=== PATIENT | female | born 1950 | race Caucasian/White ===

== ENCOUNTER 2022-03-18 12:50 | Outpatient (RCR) | payer MEDICARE, BC, SELFPAY | END 2022-08-11 14:00 | disposition home or self-care (01) | PROVIDERS: Visit Provider Family Medicine | DX: M54.41 Lumbago with sciatica, right side (principal); Z51.89 Encounter for other specified aftercare | CPT/HCPCS: 97110; 97162 ==

== ENCOUNTER 2025-02-26 17:34 | Emergency (ER) | payer MEDICARE, OTHER, SELFPAY ==
[2025-02-26 17:37] VITALS: BP 146/72; PULSE 74; RESP 18; TEMP 37; O2SAT 93; BMI 35.4
--- NOTE | 2025-02-26 18:23 | ED.WEAKNESS ---
HPI - Weakness General Date Seen: 02/26/25 Chief complaint: Weakness Stated complaint: Both legs weak feel funny Time Seen by Provider: 02/26/25 17:43 Source: patient Mode of arrival: ambulatory Limitations: no limitations History of Present Illness HPI Narrative: Patient is a 74-year-old female presenting for bilateral lower extremity weakness. She states the weakness has been going on since Tuesday night. She felt the got worse today after she went on a long walk. She states usually she is able to get into the truck without issue but today she had difficulty getting into the truck. Also when she had to get out of her chair in the ED waiting room she had difficulty standing up which is abnormal for her. She feels like when she is walking she is unstable. Has never had symptoms like this before. Denies any recent viral illnesses, respiratory symptoms, GI symptoms, diarrhea, headache, vision changes, numbness, back pain, abdominal pain. Has not had any urinary incontinence, urinary retention, saddle anesthesia, fevers, chills. States that the entire leg the feels weak and can not state with certain spot that is worse. She states she is typically very active and does not need anything to help her walk. Was using her 's cane today. States she does not go outside much into the asif and has not noticed any tick bites or rashes. Related Data Home Medications ?Medication ?Instructions ?Recorded ?Confirmed albuterol sulfate 90 mcg/actuation 2 puff inhalation Q4H PRN wheezing 02/26/25 02/26/25 aerosol inhaler cholecalciferol (vitamin D3) 1,250 1,250 mcg PO 02/26/25 mcg (50,000 unit) capsule clopidogrel 75 mg tablet 75 mg PO DAILY 02/26/25 02/26/25 famotidine 40 mg tablet 40 mg PO DAILY 02/26/25 02/26/25 lisinopril 30 mg tablet 30 mg PO DAILY 02/26/25 02/26/25 metoprolol tartrate 25 mg tablet 25 mg PO BID 02/26/25 02/26/25 rosuvastatin 40 mg tablet 40 mg PO DAILY 02/26/25 02/26/25 Previous Rx's ?Medication ?Instructions ?Recorded nitrofurantoin 100 mg PO BID #10 caps 02/26/25 monohydrate/macrocrystals 100 mg capsule (Macrobid) prednisone 20 mg tablet 80 mg (4 x 20 mg) PO DAILY 2 weeks 02/26/25 #60 tabs Allergies Allergy/AdvReac Type Severity Reaction Status Date / Time No Known Drug Allergies Allergy Verified 02/26/25 17:42 Review of Systems Status of ROS: Reports: 10 or more systems reviewed and unremarkable except as noted in History and below PFSH PFS Social History Smoking Status: Never smoker Do you use any of these nicotine containing products: None Second hand tobacco smoke exposure: No How often do you have a drink containing alcohol: never How often do you have six or more drinks on one occasion: Never AUDIT-C Alcohol total score: 0 Non-prescribed substance use: denies use service: No Exam Narrative: Exam Narrative: Const: Well-nourished, Well-developed, in mild distress Eyes: PERRL, no conjunctival injection, and symmetrical lids HENT: Atraumatic external nose and ears. Moist mucous membranes. Neck: Symmetric, trachea midline, No thyromegaly. CVS: RRR, No murmurs or gallops. Peripheral pulses 2+ and equal in all extremities RESP: Unlabored respiratory effort. Clear to auscultation bilaterally. GI: Nontender/Nondistended, No rebound or guarding. MSK:Extremities w/o deformity, Normal Active ROM Skin: Warm, Dry. No rashes or lesions. Neuro: Normal Muscle tone, normal lower extremity reflexes, normal [id number],normal gait, 5/5 strain and head knee flexion-extension, ankle plantar and dorsal flexion, her may be some decreased hearing and hip extension and flexion, extremities bilaterally, normal rapid alternating movements. Psych: Awake, Alert, & Oriented x3. Appropriate mood and affect. Const: Vital Signs, click to edit/add: Vital Signs - 24 hr 02/26/25 17:37 Temperature 98.6 F Pulse Rate [Right Pulse Oximeter] 74 Respiratory Rate 18 Blood Pressure [Ri ght Upper Arm] 146/72 H Pulse Oximetry 93 Oxygen Delivery Me thod Room Air Course Vital Signs Vital signs: Initial Vital Signs Temperature 98.6 F 02/26/25 17:37 Temperature Source Temporal Artery Scan 02/26/25 17:37 Pulse Rate 74 02/26/25 17:37 Pulse Rhythm Regular 02/26/25 17:37 Pulse Strength 3+ Normal 02/26/25 17:37 Respiratory Rate 18 02/26/25 17:37 Blood Pressure 146/72 H 02/26/25 17:37 Blood Pressure Mean 96 02/26/25 17:37 Blood Pressure Position Sitting 02/26/25 17:37 Pulse Oximetry 93 02/26/25 17:37 Oxygen Delivery Method Room Air 02/26/25 17:37 Vital Signs Temperature 98.6 F 02/26/25 17:37 Pulse Rate 74 02/26/25 17:37 Respiratory Rate 18 02/26/25 17:37 Blood Pressure 146/72 H 02/26/25 17:37 Pulse Oximetry 93 02/26/25 17:37 Oxygen Delivery Method Room Air 02/26/25 17:37 Temperature 98.6 F 02/26/25 17:37 Pulse Rate 74 02/26/25 17:37 Respiratory Rate 18 02/26/25 17:37 Blood Pressure 146/72 H 02/26/25 17:37 Pulse Oximetry 93 02/26/25 17:37 Oxygen Delivery Method Room Air 02/26/25 17:37 Medications Administered Medications: Discontinued Medications Generic Name Dose Route Start Last Admin Trade Name Freq PRN Reason Stop Dose Admin Nitrofurantoin Macrocrystals 100 mg 02/26/25 20:54 02/26/25 21:13 Nitrofurantoin Monohyd Macro 100 Mg Capsule PO 02/26/25 20:55 100 mg ONCE ONE Administration Prednisone 80 mg 02/26/25 20:47 02/26/25 21:01 Prednisone 20 Mg Tablet PO 02/26/25 20:48 80 mg ONCE ONE Administration MDM - Weakness MDM Narrative Medical decision making narrative: Patient is a 74-year-old female presenting for bilateral lower extremity weakness. She has not had any recent respiratory infections or diarrhea and has normal reflexes so my concern for Guillain-Eighty Eight is low. She has normal sensation sinus concerned about transverse myelitis she is not having any back pain, saddle anesthesia or urinary retention and my concern for cauda equina is low. The weakness is in her lower extremities and is not descending paralysis so botulism is unlikely. With a bilateral weakness a stroke seems unlikely. This could be a myositis. Will order a broad workup including EKG, troponin, CMP, ESR, urinalysis, B12, CBC, CK, CRP, TSH. CBC, TSH, CRP, ESR, EKG, troponin, B12 all showed no acute concerning abnormalities. Considering symptoms have been going on for multiple days I do not believe repeat troponin is necessary. I CMP she does have elevated liver enzymes. AST and ALT are both elevated from most recent liver enzymes in the medical center from 2020. Her kidney function has gone up from 0.89 last year per epic records to 1.3 today. Her total CK was 4109. She has had no recent falls or inciting events out make the think this is rhabdomyolysis. Considering her proximal muscle weakness of the hips and lab results I do think she likely has polymyositis. She is having no rashes that would make me think she has dermatomyositis. She is showing no signs of respiratory failure, cardiac disease or other major disease. I was able to speak to the on-call provider for her PCP and they state they will work on getting her seen tomorrow. They are aware that she will be started on high-dose steroids. Urinalysis does show signs of a UTI. She is not having any UTI symptoms but since I am starting her on such high dose of steroids I will treat her for the UTI. Macrobid prescribed Lab Data Labs: Lab Results 02/26/25 02/26/25 Range/Units 18:01 18:40 WBC 9.26 (4.50-11.00) K/uL RBC 4.58 (4.00-5.20) m/uL Hgb 13.5 (12.0-16.0) gm/dL Hct 42.2 (33.0-51.0) % MCV 92 (80-100) fL MCH 30 (26-34) pg MCHC 32 (32-36) gm/dL RDW Coeff of Wili 12.9 (11.5-15.5) % Plt Count 245 (140-440) K/uL Neut % (Auto) 67.5 (42.0-72.0) % Lymph % (Auto) 22.9 (20-44) % [place] % (Auto) 7.0 (0.0-11.0) % Eos % (Auto) 2.2 (0.0-7.0) % Baso % (Auto) 0.2 (0.0-3.0) % Neut # (Auto) 6.25 (1.7-7.0) K/uL Lymph # (Auto) 2.12 (0.90-2.90) K/uL [place] # (Auto) 0.60 (0.00-0.90) K/UL Eos # (Auto) 0.20 (0.00-0.50) K/uL Baso # (Auto) 0.02 (0.00-0.30) K/uL Abs Immat Gran (auto) 0.02 (0.00-0.30) K/uL Imm/Tot Granulo (auto) 0.2 % ESR 9 (2-20) mm/hr Sodium 143 (135-149) mmol/L Potassium 3.8 (3.6-5.1) mmol/L Chloride 107 (96-114) mmol/L Carbon Dioxide 27 (20-32) mmol/L Anion Gap 9 (7-15) mEq/L BUN 33 H (7-30) mg/dL Creatinine 1.3 (0.5-1.5) mg/dL Estimated Creat Clear 30.45 Estimated GFR 43 ml/min Glucose 116 H (60-115) mg/dL Calcium 9.9 (8.4-10.6) mg/dL Magnesium 2.4 (1.5-2.6) mg/dL Total Bilirubin 0.5 (0.1-1.5) mg/dL AST 164 H (12-35) U/L ALT 130 H (4-35) U/L Alkaline Phosphatase 71 (40-150) U/L Total Creatine Kinase 4109 H (41-117) U/L Troponin I 0.04 (0.01-0.04) ng/mL C-Reactive Protein < 0.5 L (0.5-1.0) mg/dL Total Protein 6.9 (6.0-8.3) g/dL Albumin 4.2 (3.3-5.0) g/dL Vitamin B12 305 (243-894) pg/mL TSH 2.200 (0.270-4.200) uIU/mL Urine Color Yellow (Yellow) Urine Appearance Clear (Clear) Urine pH 5.5 (5.0-8.5) Ur Specific [place] >= 1.030 (1.000-1.030) Urine Protein 3+ A (Negative) Urine Glucose (UA) Negative (Negative) Urine Ketones Negative (Negative) Urine Blood 3+ A (Negative) Urine Nitrite Positive A (Negative) Urine Bilirubin Negative (Negative) Urine Urobilinogen 0.2 (0.2-1.0) Ur Leukocyte Esterase Trace A (Negative) Urine RBC 0-2 (0-2) Urine WBC 2-5 (0-5) Ur Squamous Epith Cells Moderate A (None-Few) Urine Bacteria Many A (None) ECG Data Attestation: I personally reviewed and interpreted this ECG as follows: Prior ECG tracings: not available for review Interpretation: Normal sinus rhythm with a rate of 74 beats per minute, normal intervals, normal axis, no ST or T-wave abnormalities Discharge Plan Discharge Clinical Impression: Polymyositis, Acute UTI Patient Disposition: Home, Self-Care Condition: Stable Instructions: Polymyositis (ED) Additional Instructions: I believe your hip weakness is due to polymyositis. This is an inflammatory condition of your muscles. Treatment is high dose steroids. I will give the 2 weeks of high-dose steroids but it is extremely important you do not stop these medications cold turkey. If you have not seen a primary care provider by next week you absolutely need to call them again and tell them you need to be seen immediately due to these high dose steroids. If you stop the medication cold turkey you can get seriously sick and end up in the ICU. I spoke to the on-call provider for your PCP. They state your provider is in the office tomorrow and should be able to get you seen. Call their office in the morning and inform them you were seen in the emergency department and was diagnosed with polymyositis and started on high dose steroids. The high-dose steroids can causes psychosis so if you have any neurological or changes to your mental baseline return for re-evaluation. Your urinalysis is showing signs though in acute urinary tract infection. Although your not having symptoms we are treating you with antibiotics due to the steroids your started on. Talk to your primary care provider about this also Prescriptions: New prednisone 20 mg tablet 80 mg PO DAILY 14 Days Qty: 60 0RF nitrofurantoin monohyd/m-cryst [Macrobid] 100 mg capsule 100 mg PO BID Qty: 10 0RF Rx Instructions: must administer with a meal/food No Action famotidine 40 mg tablet 40 mg PO DAILY clopidogrel 75 mg tablet 75 mg PO DAILY lisinopril 30 mg tablet 30 mg PO DAILY albuterol sulfate 90 mcg/actuation HFA aerosol inhaler 2 puff INHALATION Q4H PRN (Reason: wheezing) rosuvastatin 40 mg tablet 40 mg PO DAILY metoprolol tartrate 25 mg tablet 25 mg PO BID cholecalciferol (vitamin D3) 1,250 mcg (50,000 unit) capsule 1,250 mcg PO Follow Up/Referrals: Nimisha Peterson DO [Primary Care Provider, Family Practice] Stand Alone Forms: [employer],SL Info Instructions
[2025-02-26 18:48] LABS: Basophils Absolute Auto 0.02 K/uL (0.00-0.30); Basophils Percent Auto 0.2 % (0.0-3.0); Eosinophils Percent Auto 2.2 % (0.0-7.0); Hematocrit 42.2 % (33.0-51.0); Hemoglobin* 13.5 gm/dL (12.0-16.0); Immature Granulocytes Abs Auto 0.02 K/uL (0.00-0.30); Immature Granulocytes Pct Auto 0.2 %; Lymphocytes Absolute Auto 2.12 K/uL (0.90-2.90); Lymphocytes Percent Auto 22.9 % (20-44); Mean Corpuscular HGB Conc 32 gm/dL (32-36); Mean Corpuscular Hemoglobin 30 pg (26-34); Mean Corpuscular Volume 92 fL (80-100); Neutrophils Absolute Auto 6.25 K/uL (1.7-7.0); Neutrophils Percent Auto 67.5 % (42.0-72.0); Platelet Count* 245 K/uL (140-440); RDW Coefficient of Variation % 12.9 % (11.5-15.5); Red Blood Count 4.58 m/uL (4.00-5.20); White Blood Count* 9.26 K/uL (4.50-11.00)
[2025-02-26 18:51] LABS: Slide Review Reflex No
--- OUTSIDE RECORDS SUMMARY | 2025-02-26 18:52 | XMS_ITS | Clinical Summary ---
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 Active nitroglycerin (NITROSTAT) 0.4 mg sublingual tabletIndications :NSTEMI (non-ST elevated myocardial infarction) (HC) Place 1 Tablet (0.4 mg) under the tongue every 5 minutes if needed for Chest Pain. 30 Tablet 1 1 1:25 PM SAND CONDITIONER 07/16/20 21 Active cyclobenzaprine (FLEXERIL) 5 mg tabletIndications :Acute midline low back pain with right-sided sciatica Take 1 Tablet (5 mg) by mouth 3 times daily if needed for Muscle Spasm. 30 Tablet 1 06/06/20 23 Active clopidogreL (PLAVIX) 75 mg tabletIndications :History of non-ST elevation myocardial infarction (NSTEMI) Take 1 Tablet (75 mg) by mouth once daily. 90 Tablet 3 04/30/20 24 Active famotidine (PEPCID) 40 mg tabletIndications :Chronic GERD Take 1 Tablet (40 mg) by mouth once daily. 90 Tablet 3 04/30/20 24 Active lisinopriL (PRINIVIL; ZESTRIL) 30 mg tabletIndications :NSTEMI (non-ST elevated myocardial infarction) (HC) Take 1 Tablet (30 mg) by mouth once daily. 90 Tablet 3 04/30/20 24 Active metoprolol tartrate (LOPRESSOR) 25 mg tabletIndications :NSTEMI (non-ST elevated myocardial infarction) (HC) Take 1 Tablet (25 mg) by mouth two times daily. 180 Tablet 3 04/30/20 24 Active cholecalciferol (VITAMIN D3) 50,000 unit capsuleIndication s:Vitamin D deficiency Take 1 Capsule (50,000 units) by mouth once weekly. 12 Capsule 1 05/03/20 24 Active albuterol HFA (PRO-AIR; VENTOLIN; PROVENTIL) 90 mcg/actuation inhalerIndication s:Chronic obstructive pulmonary disease, unspecified COPD type (HC) INHALE 2 PUFFS BY MOUTH EVERY 4 HOURS NEEDED FOR SHORTNESS OF BREATH AND FOR WHEEZING 9 g 5 06/13/20 24 Active rosuvastatin 40 mg tabletIndications :Hyperlipidemia, unspecified hyperlipidemia type TAKE 1 TABLET(40 MG) BY MOUTH AT BEDTIME 90 Tablet 02/12/20 25 Active rosuvastatin (CRESTOR) 40 mg tabletIndications :Hyperlipidemia, unspecified hyperlipidemia type Take 1 Tablet (40 mg) by mouth at bedtime. 90 Tablet 11/13/19 25 2024 Discontinued(R eorder (E-cancel not sent)) rosuvastatin 40 mg tabletIndications :Hyperlipidemia, unspecified hyperlipidemia type Take 1 Tablet (40 mg) by mouth at bedtime. 30 Tablet 02/09/20 25 2024 Discontinued Active Problems Problem Noted Date Diagnosed Date Chronic obstructive pulmonary disease 09/16/2021 Aortic stenosis 07/16/2021 NSTEMI (non-ST elevated myocardial infarction) 1 09/14/2020 Overview (12/07/2023): ANW-- 1 LISA to mid circumflex (80% stenosis) DAPT January 2021-January 2024, then continue Plavix alone. Tobacco use 07/15/2021 Encounters Date Type Department Care Team Description 02/26/2025 Nurse Triage [facility] [address] [place] [address] Nimisha Peterson, DO Extremity Weakness 02/14/2025 Telephone [facility] [address] [facility] [address] [place] [address] Gerald Mena MD Other (Appointment 03/01/2025); Cardiology Appointment 02/12/2025 Telephone [facility] [address] [address] Gerald Mena MD Lab (Lab orders needed) 02/11/2025 Refill [facility] [address] [place] [address] Gerald Mena MD Refill Request (Rosuvastatin) 02/08/2025 Refill [facility] [address] [place] [address] Gerald Mena MD Refill Request (Rosuvastatin) 02/07/2025 Refill [facility] [address] [place] [address] Gerald Mena MD Refill Request (rosuvastatin 40 mg) from Last 3 Months Immunizations Immunization Administration Dates Next Due AMB Influenza, IIV3 (Age >=3 years)(Flu Clinic Only) 07/05/2011 COVID-19 VACCINE SPIKEVAX (M ODERNA 50MCG/0.5ML) 12YO+ PFS 07/05/2024,06/22/2023 COVID-19 vaccine (Jose-J&J) PF, MDV COVID-19 vaccine (Equals6Bio NTech 30mcg/0.3mL) 12YO+ BIVALENT PF, MDV 03/14/2023,09/21/2022 COVID-19 vaccine (Gold Lasso-Bio NTech 30mcg/0.3mL) 12YO+ JENNIFER-SUCROSE PF, MDV 01/11/2022 COVID-19 vaccine (BrickTrends NTech 30mcg/0.3mL) PF, MDV 07/21/2021 Hep B (Hepatitis B (Adult) R ecombinant Adjuvanted) 01/09/2024,12/09/2023 Influenza, IIV3 (Age 6-35 mos) 07/05/2011 Influenza, IIV3 (Age >=3 years) 06/15/2012,09/08,07/19/2007 Influenza, Inactivated AIIV4 (Age 65+ Years) Preserv Free 06/06/2023,06/01/2022,07/16/2021 Influenza, Inactivated IIV3 (Age 65+ Years) Preserv Free 07/05/2024 Pneumococcal Conj 20-valent (Prevnar 20) 022 RSV, Recombinant ADJ Reconst ituted (Arexvy 120MCG/0.5mL) 12/09/2023 Tdap 06/06/2022,06/15/2012 Zoster (Shingrix-RZV, recombinant) 08/09/2022, Family History Medical History Relation Name Comments Hodgkin's lymphoma Brother COPD Sister Asthma Son 1 Al Relation Name Status Comments Brother Father (Age 95) Mother (Age 88) Sister Son 1 Al Alive Son 2 Gilbert Alive Social History Tobacco Use Types Packs/Day Years Used Date Smoking Tobacco: Every Day Cigarettes 0.5 60.5 Started: 1966 Smokeless Tobacco: Former Tobacco Cessation:Ready to Q uit: Not Asked; Counseling Given: Not Answered Comments:on and off for years-- down to 5 cigarettes per day Alcohol Use Standard Drinks/Week Comments No 0 (1 standard drink = 0.6 oz pur e alcohol) PHQ-2 Answer Date Recorded PHQ-2 TOTAL SCORE 1 04/30/2024 Social Connections Answer Date Recorded Do you often feel lonely or isolated from those around you? 0 04/30/2024 Financial Resource Strain Answer Date R ecorded Difficulty of Paying Living Expenses 3 04/30/2024 Difficulty of Paying Living Expenses Not on file 04/30/2024 Food Insecurity Answer Date Recorded Do you worry your food will run out before you are able to buy more? 1 04/30/2024 Transportation Needs Answer Date Record ed Does lack of transportation keep you from medica l appointments? 1 04/30/2024 Does lack of transportation keep you from work, meetings or getting things that you need? 1 04/30/2024 Housing Stability Answer Date Recorded What is your housing situation today? 1 04/30/2024 Utilities Answer Date Recorded Do you have trouble paying f or utilities (for example, heat, electricity, water, phone)? 1 04/30/2024 Comments No Sex and Gender Information Value Date Recorded Sex Assigned at Not on file Legal Sex Female 5:25 AM SAND CONDITIONER Gender Identity Not on file Sexual Orientation Not on file Obstetrics History Last Filed Vital Signs Vital Sign Reading Time Taken Comments Blood Pressure 126/69 08/20/2024 12:59 PM SAND CONDITIONER Pulse 67 08/20/2024 12:59 PM SAND CONDITIONER Temperature 36.8 C (98.2 F) 03/09/2022 2:16 PM CDT Respiratory Rate 16 03/09/2022 2:16 PM CDT Oxygen Saturation 95% 08/20/2024 12:59 PM SAND CONDITIONER Inhaled Oxygen Concentration - - Weight 86.2 kg (190 lb) 08/20/2024 12:59 PM SAND CONDITIONER Height 162 cm (5' 3.78) 04/30/2024 10:54 AM CDT Body Mass Index 32.84 04/30/2024 10:54 AM CDT Plan of Treatment Upcoming Encounters Date Type Department Care Team (Late st Contact Info) Description 03/01/2025 1:30 PM CDT Office Visit [facility] [address] [place] [address] Gerald Mena MD [address] [place], [place] [id number] 03/19/2025 10:15 AM CDT Orders Only [facility] [address] [place] [address] Lab, [place] 03/19/2025 1:[address] [facility] [address] [place], [place] [id number] Health Maintenance Due Date Last Done Comments DEXA/DXA scan for age 65+ [address] (for lung CA) ag e 50-80 07/20/2023 07/20/2022 COVID-19 vaccine series ( season) 2025 07/05/2024, 06/22/2023, 03/14/2023, Additional history exists BMI (ht and wt on same day) for age 18+ 04/30/2025 04/30/2024, 03/14/2023, 07/13/2022, Additional history exists Medicare Wellness for age 65+ 05/01/2025, 03/14/2023, 08/05/2021 Depression screening for age 12+ 05/03/2025 05/03/2024, 05/01/2024, 04/30/2024, Additional history exists Tetanus booster 06/06/2032 06/06/2022, 06/05, 06/15/2012 Hepatitis C screening for ag e 18-79 Completed 07/21/2021 Pneumococcal series for age 50+ Completed Tdap Completed 06/06/2022, 06/15/2012 Zoster (shingles) series for age 50+ Completed 08/09/2022, 06/06/2022 RSV vaccine for adults or Completed 12/09/2023 Hepatitis B series for 19+ Completed 01/09/2024, Influenza Vaccine Completed 07/05/2024, , 06/01/2022, Additional history exists Procedures Procedure Name Priority Date/Time Associated Diagnosis Comments CT CHEST WO Routine 07/20/2022 11:11 AM SAND CONDITIONER Atelectasis of right lung ANTI HCV Routine 07/21/2021 9:56 AM SAND CONDITIONER Need for hepatitis C screening test from Last 3 Months or Most Recently Relevant to Health Maintenance Results * CT CHEST WO (07/20/2022 11:11 AM SAND CONDITIONER) Anatomical Region Laterality Modality CHEST, THORAX, HEART Computed To mography 07/20/2022 11:3 7 AM SAND CONDITIONER Narrative 07/20/2022 11:37 AM SAND CONDITIONER For Patients: As a result of the 21st Century Cures Act, medical imaging exams and procedure reports are released immediately into your electronic medical record. You may view this report before your referring provider. If you have questions, please contact your health care provider. Indication: Abnormal x-ray, lung opacities Technique: Noncontrast CT chest Please note that all CT scans at this facility use dose modulation, iterative reconstruction, and/or weight-based dosing when appropriate to reduce radiation dose to as low as reasonably achievable. Comparison: Chest x-ray 03/12/2022 Findings: There are a few scattered tiny pulmonary nodules bilaterally. The largest is located in the right upper lobe measuring 3 millimeters, series 3, image 18. No pneumothorax. No pleural effusion. No infiltrate. Subsegmental linear atelectasis/scar in the right lower lobe. 2 millimeter calcified granuloma within the right lower lobe. No mediastinal, hilar or axillary adenopathy. Vascular calcifications including calcifications of the coronary arteries. Benign low-density left adrenal adenoma measuring 1.5 cm. Lung volumes are similar. Mild emphysematous changes. Impression: Right lower lobe linear subsegmental atelectasis/scar. There are few scattered tiny nodules present bilaterally measuring up to 3 millimeters. Optional follow-up in 1 year. Mild COPD/emphysema. Incidental benign adenoma left adrenal gland. Please note that all CT scans at this facility use dose modulation, iterative reconstruction, and/or weight-based dosing when appropriate to reduce radiation dose to as low as reasonably achievable. Dictated by Pavel Wallace MD @ Jul 20 2022 11:37AM (Electronically Signed) Procedure Note Pavel Wallace MD - 07/20/2022 For Patients: As a result of the 21st Century Cures Act, medical imagingexams and procedure reports are released immediately into your electronicmedical record. You may view this report before your referring provider.If you have questions, please contact your health care provider. Indication: Abnormal x-ray, lung opacities Technique: Noncontrast CT chest Please note that all CT scans at this facility use dose modulation,iterative reconstruction, and/or weight-based dosing when appropriate toreduce radiation dose to as low as reasonably achievable. Comparison: Chest x-ray 03/12/2022 Findings: There are a few scattered tiny pulmonary nodules bilaterally. The largestis located in the right upper lobe measuring 3 millimeters, series 3,image 18. No pneumothorax. No pleural effusion. No infiltrate.Subsegmental linear atelectasis/scar in the right lower lobe. 2 millimetercalcified granuloma within the right lower lobe. No mediastinal, hilar oraxillary adenopathy. Vascular calcifications including calcifications ofthe coronary arteries. Benign low-density left adrenal adenoma measuring1.5 cm. Lung volumes are similar. Mild emphysematous changes. Impression: Right lower lobe linear subsegmental atelectasis/scar. There are few scattered tiny nodules present bilaterally measuring up to 3millimeters. Optional follow-up in 1 year. Mild COPD/emphysema. Incidental benign adenoma left adrenal gland. Please note that all CT scans at this facility use dose modulation,iterative reconstruction, and/or weight-based dosing when appropriate toreduce radiation dose to as low as reasonably achievable. Dictated by Pavel Wallace MD @ Jul 20 2022 11:37AM (Electronically Signed) Catrachito Warren DO CT Final Resu lt * ANTI HCV (07/21/2021 9:56 AM SAND CONDITIONER) HEPATITIS C ANTIBODY Non-React marce Non-React marce 07/21/2021 8:59 PM SAND CONDITIONER [facility] Comment:Antibodies to HCV no t detected; does not exclude the possibility of exposure to HCV. Blood BLOOD SPECIMEN / Unknown Venipuncture / Unknown 07/21/2021 9:56 AM SAND CONDITIONER 07/21/2021 9:56 AM SAND CONDITIONER Saloni [facility]LL[facility] SEND OUT[facility] Final Result [facility] [address] [place] [address], [place] from Last 3 Months or Most Recently Relevant to Health Maintenance Insurance MEDICARE PART A HB ONLY [employer] PB ONLY * Guarantor: RAMILA LUCIANO Account Type Relation to Patient Date of Phone Billing Address Personal/Family [address] [facility] [id number] Advance Directives * Full Code (Latest Code Status on File) Date Activated Date Inactivated Comments 07/15/2021 3:32 AM 07/16/2021 4:47 PM Question Answer Comments Code Status Discussion: Discussed Care Teams Drywall Finisher Relationship Specialty Start Date End Date Nimisha Peterson [place] [address] PCP - General Family Practice 06/01/22
[2025-02-26 19:08] LABS: Albumin* 4.2 g/dL (3.3-5.0); Chloride* 107 mmol/L (96-114)
[2025-02-26 19:09] LABS: Potassium* 3.8 mmol/L (3.6-5.1); Sodium* 143 mmol/L (135-149)
[2025-02-26 19:11] LABS: Alanine Aminotransferase* 130 U/L (4-35); Aspartate Amino Transferase* 164 U/L (12-35); Blood Urea Nitrogen* 33 mg/dL (7-30); Creatinine* 1.3 mg/dL (0.5-1.5); Est. Creatinine Clearance* 30.45; Estimated Glomerular Filt Rate 43 ml/min
[2025-02-26 19:12] LABS: Alkaline Phosphatase* 71 U/L (40-150); Anion Gap 9 mEq/L (7-15); Bilirubin Total* 0.5 mg/dL (0.1-1.5); Calcium* 9.9 mg/dL (8.4-10.6); Carbon Dioxide* 27 mmol/L (20-32); Glucose* 116 mg/dL (60-115); Magnesium* 2.4 mg/dL (1.5-2.6); Total Protein* 6.9 g/dL (6.0-8.3)
[2025-02-26 19:24] LABS: Troponin I* 0.04 ng/mL (0.01-0.04)
[2025-02-26 19:35] LABS: Erythrocyte SedimentationRate* 9 mm/hr (2-20)
[2025-02-26 19:51] LABS: C Reactive Protein* < 0.5 mg/dL (0.5-1.0)
[2025-02-26 20:02] LABS: Vitamin B12* 305 pg/mL (243-894)
[2025-02-26 20:22] LABS: Creatine Kinase* 4109 U/L (41-117)
[2025-02-26 20:33] LABS: Appearance Urine Clear (Clear); Bilirubin Urine Negative (Negative); Blood Urine 3+ (Negative); Color Urine Yellow (Yellow); Glucose Urine Negative (Negative); Ketones Urine Negative (Negative); Leukocyte Esterase Urine Trace (Negative); Nitrite Urine Positive (Negative); Protein Urine 3+ (Negative); Specific Gravity Urine >= 1.030 (1.000-1.030); Urobilinogen Urine 0.2 (0.2-1.0); pH Urine 5.5 (5.0-8.5)
[2025-02-26] MEDS: predniSONE 20 MG TABLET 80 MG PO (21:01)
[2025-02-26 21:08] LABS: RBC Urine 0-2 (0-2)
[2025-02-26 21:09] LABS: Bacteria Urine Many; Squamous Epithelial Cell Urine Moderate (None-Few)
[2025-02-26] MEDS: NITROFURANTOIN MONOHYD MACRO 100 MG CAPSULE PO (21:13)
== END 2025-02-26 21:16 | disposition home or self-care (01) ==
PROVIDERS: Emergency Provider Student in an Organized Health Care Education/Training Program; PCP Family Medicine
DX: M33.20 Polymyositis, organ involvement unspecified (principal); N39.0 Urinary tract infection, site not specified
CPT/HCPCS: 36415; 80053; 81001; 82550; 82607; 83735; 84443; 84484; 85025; 85651; 86140; 87086; 93005; 99284; A9270; J7512

== ENCOUNTER 2025-07-10 09:14 | Emergency (ER) | payer MEDICARE, OTHER, SELFPAY ==
--- OUTSIDE RECORDS SUMMARY | 2025-07-10 09:17 | XMS_ITS | Clinical Summary ---
Author Organization [facility] Address [address] [place] [id number] Care Team Providers Care Laboratory Apparatus Glass Blower Name Role Phone Nimisha Peterson DO Primary Care Provider Patricia Brown MD Unavailable [phone] Carla Matthews Unavailable Sandy Campuzano MD Unavailable [phone] Allergies Active Allergy Reactions Criticality Noted Date Comments Bee Venom Protein (Honey Bee) Edema 03/17/2022 Pyhfnqu-Vul-Xck Reductase Inhibitors Other - Describe In Comment Field 06/05/2025 biopsy proven myositis not clear etiology Medications nitroglycerin (NITROSTAT) 0.4 mg sublingual tabletIndicati ons:NSTEMI (non-ST elevated myocardial infarction) (HC) Place 1 Tablet (0.4 mg) under the tongue every 5 minutes if needed for Chest Pain. 30 Tablet 1 1 1:25 PM FOOD BEVERAGE ATTENDANT 021 Active clopidogreL (PLAVIX) 75 mg tabletIndicati ons:History of non-ST elevation myocardial infarction (NSTEMI) Take 1 Tablet (75 mg) by mouth once daily. 90 Tablet 3 025 Active albuterol HFA (PRO-AIR; VENTOLIN; PROVENTIL) 90 mcg/actuation inhalerIndicat ions:Chronic obstructive pulmonary disease, unspecified COPD type (HC) INHALE 2 PUFFS BY MOUTH EVERY 4 HOURS NEEDED FOR SHORTNESS OF BREATH AND FOR WHEEZING 6.7 g 3 025 Active cholecalcifero l (VITAMIN D3) 1,000 unit capsule Take 1,000 units by mouth once daily. Active acetaminophen (TYLENOL) 325 mg tabletIndicati ons:Polymyosit is (HC) Take 2 Tablets (650 mg) by mouth every 4 hours if needed for Pain. Max acetaminophen dose: 4000mg in 24 hrs. 120 Tablet 025 Active Additional Information Patient not taking.Reason: per patient she is not taking this, Reported on 07/03/2025 sennosides-doc usate (SENOKOT S) (8.6-50 mg) tabletIndicati ons:Polymyosit is (HC) Take 1 Tablet by mouth 2 times daily if needed for Constipation. 20 Tablet 025 Active Additional Information Patient not taking.Reported on 07/03/2025 azaTHIOprine (IMURAN) 50 mg tabletIndicati ons:Necrotizin g myopathy,Infla mmatory myopathy TAKE 1 TABLET BY MOUTH DAILY FOR 2 WEEKS THEN TAKE 1 TABLET BY MOUTH TWICE DAILY 145 Tablet 025 Active durable medical equipment (DME)Indicatio ns:Bilateral lower extremity edema 1 pair knee high compression stockings (16-20 mmHg) 1 Each 025 Active predniSONE (DELTASONE) 5 mg tabletIndicati ons:Necrotizin g myopathy,Infla mmatory myopathy Take 3 tablets daily (15mg) for 4 weeks and then 2.5 tablets (12.5mg) daily for 4 weeks and then 2 tablets daily (10mg) for 4 weeks and then 1.5 tablets daily for 4 weeks ( 7.5mg) and then 1 tablet daily (5mg) daily and continue 120 Tablet 3 025 Active folic acid 1 mg tabletIndicati ons:Macrocytic anemia,Folic acid deficiency Take 1 Tablet (1 mg) by mouth once daily. 90 Tablet 1 025 Active Additional Information Patient not taking.Reported on 06/07/2025 alirocumab (Praluent Pen) 150 mg/mL pnij Inject 150 mg subcutaneous every 2 weeks. 2 mL 5 025 Active Additional Information Patient not taking.Reported on 07/03/2025 furosemide (LASIX) 20 mg tabletIndicati ons:Bilateral lower extremity edema Take 2 Tablets (40 mg) by mouth two times daily. 60 Tablet 3 Active potassium chloride (K-TAB) 20 mEq extended-relea se tabletIndicati ons:Hypokalemi a Take 1 Tablet (20 mEq) by mouth once daily with a meal. 30 Tablet 2 Active cyanocobalamin (VITAMIN B12) as half tablet Take 1,000 mcg by mouth once daily. Active famotidine (PEPCID) 40 mg tabletIndicati ons:Chronic GERD TAKE 1 TABLET(40 MG) BY MOUTH DAILY 90 Tablet 2 Active metoprolol tartrate (LOPRESSOR) 25 mg tabletIndicati ons:NSTEMI (non-ST elevated myocardial infarction) (HC) TAKE 1 TABLET(25 MG) BY MOUTH TWICE DAILY 180 Tablet Active lisinopriL (PRINIVIL; ZESTRIL) 30 mg tabletIndicati ons:NSTEMI (non-ST elevated myocardial infarction) (HC) Take 1 Tablet (30 mg) by mouth once daily. 60 Tablet Active famotidine (PEPCID) 40 mg tabletIndicati ons:Chronic GERD Take 1 Tablet (40 mg) by mouth once daily. 90 Tablet 025 2024 Discontinued metoprolol tartrate (LOPRESSOR) 25 mg tabletIndicati ons:NSTEMI (non-ST elevated myocardial infarction) (HC) Take 1 Tablet (25 mg) by mouth two times daily. 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 Tobacco use 07/15/2021 Encounters Date Type Department Care Team Description 07/08/2025 3:15 PM FOOD BEVERAGE ATTENDANT Orders Only [facility] [address] [place] [address] Lab, [place] [facility] 07/08/2025 Travel 07/08/2025 Refill [facility] [address] [place] [address] Nicholas Nimisha Nayana, DO Refill Request (Lisinopril) 07/03/2025 9:40 AM CDT Office Visit [facility] [address] [place] [address] Sandy Campuzano MD Consult (Adenoma of left adrenal gland, Inflammatory myopathy//) 07/03/2025 Travel 06/27/2025 Refill [facility] [address] [place] [address] Nicholas Nimisha Nayana, DO Refill Request (Famotidine, Metoprolol Tartrate) 06/25/2025 Telephone [facility] [address] [place] [address] Chrisra Nimisha Nayana, DO Follow Up 06/21/2025 Telephone [facility] [address] [place] [address] Chrisra Nimisha Nayana, DO DME Supply (Oxygen ) 06/08/2025 Refill [facility] [address] [place] [address] Walterqra Nimisha Nayana, DO Refill Request (Lisinopril) 06/07/2025 9:40 AM CDT Orders Only [facility] [address] [place] [address] Lab 06/07/2025 Travel 06/07/2025 Telephone [facility] [address] [place] [address] Bob [facility] [address] [place] [address] Catrachito Warren DO Appointment Request (MIKAELA REFERRAL) 06/06/2025 Telephone [facility] [address] [place] [address] Carla Matthews MBBS Results 06/05/2025 1:30 PM CDT Office Visit [facility] [address] [place] [address] Carla Matthews MBBS Consult 06/05/2025 Orders Only [facility] [address] [place] [id number] Gerald Mena MD <No scans attached> 06/05/2025 Orders Only [facility] [address] [place] [id number] Gerald Mena MD <No scans attached> 06/05/2025 Travel 05/31/2025 Telephone [facility] [address] [place] [address] Nimisha Peterson, DO Results 05/30/2025 Telephone [facility] [address] [place] [phone] Gerald Mena MD Medication Management 05/29/2025 9:45 AM CDT Office Visit [facility] [address] [place] [address] Nimisha Peterson, DO Follow Up 05/29/2025 Telephone [facility] [address] [facility] [address] [place] [address] Patricia Brown MD 05/29/2025 Travel 05/28/2025 Telephone [facility] [address] [facility] [address] [place] [address] Patricia Brown MD Results 05/28/2025 Orders Only [facility] [address] [address] Patricia Brown MD <No scans attached> 05/27/2025 10:30 AM CDT Ancillary Procedure [facility] [address] [place] [address] 05/27/2025 Travel 05/24/2025 Telephone [facility] [address] [address] Patricia Brown MD Infusion Therapy 05/23/2025 10:30 AM CDT Office Visit [facility] [address] [address] Patricia Brown MD Follow Up (8 week follow up. ) 05/23/2025 Travel 05/23/2025 Telephone [facility] [address] [place] [address] Nimisha Peterson, Results 05/20/2025 10:35 AM CDT Office Visit [facility] [address] [place] [address] Nimisha Peterson, Hospital F/U (Polymyositis ) 05/20/2025 Travel 05/17/2025 Telephone [facility] [address] [place] [address] Nimisha Peterson, Appointment Request 05/16/2025 Refill [facility] [address] [address] Patricia Brown MD Refill Request (Azathioprine) 05/16/2025 Telephone [facility] [address] [address] Patricia Brown MD 05/09/2025 Lab Requisition [facility] [address] [place] [address] Hardy Crum MD 05/01/2025 Telephone [facility] [address] [place] [address] Nimisha Peterson, DO Error-please disregard 05/01/2025 Telephone [facility] [address] [place] [address] Sondra Rodriguez MD Results 04/30/2025 Lab Requisition [facility] [phone] Unknown, Doctor 04/19/2025 7:26 AM CDT Anesthesia Event [facility] [address] [place] [address] Zafar Eastman MD Overgaard, Shawn M, CRNA 04/19/2025 7:15 AM CDT - 04/19/2025 8:47 AM CDT Surgery [facility] [address] [place] [address] Sondra Rodriguez MD RIGHT THIGH MUSCLE BIOPSY 04/15/2025 11:13 PM CDT - 04/19/2025 3:40 PM CDT Hospital Encounter [facility] [address] [place] [address] [facility] Hospitalists [facility], MD Eric Zamorano Andrew Michael, MD Polymyositis (HC) (Primary Dx) Discharge Disposition: Half-Way Facility 04/15/2025 11:39 AM CDT - 04/15/2025 10:09 PM CDT Emergency [facility] [address] [place] [address] Zuri Ventura PA Johnson, Nicholas Charles, MD Myositis, unspecified myositis type, unspecified site (Primary Dx); Weakness of both lower extremities; Elevated LFTs; Elevated CK; YOVANY (acute kidney injury) Discharge Disposition: Short Term/PPS Hosp 04/15/2025 Travel 04/15/2025 Telephone [facility] [address] [facility] [place] [address] Nimisha Peterson Nayana, DO Questions (losing ability to walk) 04/09/2025 Orders Only [facility] Scanner 1 scan: (1-Ord) [facility], MR CERVICAL SPINE WITHOUT CONTRAST, 04/09/2025 04/09/2025 Orders Only [facility] Scanner 1 scan: (1-Ord) [facility], THORACIC SPINE WO CONTRAST , 04/09/2025 from Last 3 Months Immunizations Immunization Administration Dates Next Due AMB Influenza, IIV3 (Age >=3 years)(Flu Clinic Only) 07/05/2011 COVID-19 VACCINE SPIKEVAX (M ODERNA 50MCG/0.5ML) 12YO+ PFS 07/05/2024,06/22/2023 COVID-19 vaccine (Jose-J&J) PF, MDV COVID-19 vaccine (SinDelantal.MxBio NTech 30mcg/0.3mL) 12YO+ BIVALENT PF, MDV 03/14/2023,09/21/2022 COVID-19 vaccine (SinDelantal.MxBio NTech 30mcg/0.3mL) 12YO+ JENNIFER-SUCROSE PF, MDV 01/11/2022 COVID-19 vaccine (SinDelantal.MxBio NTech 30mcg/0.3mL) PF, MDV 07/21/2021 Hep B [...] Date Smoking Tobacco: Every Day Cigarettes 0.5 60.8 Started: 1967 Smokeless Tobacco: Former Tobacco Cessation:Ready to Q uit: No; Counseling Given: Yes Comments:on and off for years-- down to 10 cigarettes per day Alcohol Use Standard Drinks/Week Comments No 0 (1 standard drink = 0.6 oz pur e alcohol) PHQ-2 Answer Date Recorded PHQ-2 TOTAL SCORE 1 04/30/2024 Social Connections Answer Date Recorded Do you often feel lonely or isolated from those around you? 0 04/16/2025 Alcohol Use Answer Date Recorded How often do you have a drink containing alcohol ? 0 07/03/2025 How many drinks containing a lcohol do you have on a typical day when you are drinking? Not on file 07/03/2025 How often do you have five or more drinks on one occasion? Not on file 07/03/2025 Financial Resource Strain Answer Date R ecorded Difficulty of Paying Living Expenses 3 04/30/2024 Difficulty of Paying Living Expenses Not on file 04/30/2024 Food Insecurity Answer Date Recorded Do you worry your food will run out before you are able to buy more? 1 04/16/2025 Transportation Needs Answer Date Record ed Does lack of transportation keep you from medica l appointments? 1 04/16/2025 Does lack of transportation keep you from work, meetings or getting things that you need? 1 04/16/2025 Housing Stability Answer Date Recorded What is your housing situation today? 1 04/16/2025 Interpersonal Safety Answer Date Record ed Are you being hit, kicked, p ushed or yelled at (see row info)? No 04/16/2025 Interpersonal Safety Abuse 12 - 18 Not on file 04/16/2025 Interpersonal Safety Ambulatory Vulnerability No t on file 04/16/2025 Utilities Answer Date Recorded Do you have trouble paying f or utilities (for example, heat, electricity, water, phone)? 1 04/16/2025 Comments No Sex and Gender Information Value Date Recorded Sex Assigned at Not on file Legal Sex Female 5:25 AM FOOD BEVERAGE ATTENDANT Gender Identity Not on file Sexual Orientation Not on file Obstetrics History Last Filed Vital Signs Vital Sign Reading Time Taken Comments Blood Pressure 102/50 07/03/2025 9:40 AM CDT Pulse 73 07/03/2025 9:40 AM CDT Temperature 36.3 C (97.3 F) 04/19/2025 10:21 AM CDT Respiratory Rate 20 04/19/2025 10:21 AM CDT Oxygen Saturation 96% 07/03/2025 9:40 AM CDT Inhaled Oxygen Concentration - - Weight 83.5 kg (184 lb) 07/03/2025 9:40 AM CDT Height 162 cm (5' 3.78) 05/23/2025 10:28 AM CDT Body Mass Index 31.8 05/23/2025 10:28 AM CDT Plan of Treatment Upcoming Encounters Date Type Department Care Team (Late st Contact Info) Description 07/16/2025 11:00 AM FOOD BEVERAGE ATTENDANT Office Visit [facility] [address] [place] [address] Nimisha Peterson, DO [address] [place] [address] 07/17/2025 10:30 AM FOOD BEVERAGE ATTENDANT Office Visit [facility] [address] [place] [address] Carla Matthews MBBS [address] [facility] [address] [place] [address] 07/25/2025 2:30 PM FOOD BEVERAGE ATTENDANT Office Visit [facility] [address] [facility] [address] [place] [address] [place] [address] [place] [address] 01/01/2026 10:05 AM CDT Office Visit [facility] [address] [facility] [address] [place] [address] [place] [address] [place], [place] [id number] Health Maintenance Due Date Last Done Comments DEXA/DXA scan for age 65+ 2013 Medicare Wellness for age 65+ 05/01/2025, 03/14/2023, 08/05/2021 Depression screening for age 12+ 05/03/2025 05/03/2024, 05/01/2024, 04/30/2024, Additional history exists Influenza Vaccine (#1) 2025 , 06/06/2023, 06/01/2022, Additional history exists BMI (ht and wt on same day) for age 18+ 05/23/2026 05/23/2025, 03/26/2025, 03/05/2025, Additional history exists Low Dose CT (for lung CA) ag e 50-80 05/27/2026 05/27/2025, 07/20/2022 Tetanus booster 06/06/2032 06/06/2022, 06/05, 06/15/2012 Pneumococcal series for age 50+ Completed Zoster (shingles) series for age 50+ Completed 08/09/2022, 06/06/2022 RSV vaccine for adults or Completed 12/09/2023 Hepatitis B series for 19+ Completed 01/09/2024, Hepatitis C screening for ag e 18-79 Completed 06/05/2025, 05/09/2025, 04/16/2025, Additional history exists Procedures Procedure Name Priority Date/Time Associated Diagnosis Comments URINALYSIS MICROSCOPIC Routine 2:55 PM FOOD BEVERAGE ATTENDANT Proteinuria, unspecified type URINE ALBUMIN TO CREATININE RATIO, RANDOM Routine 07/08/2025 2:55 PM FOOD BEVERAGE ATTENDANT Proteinuria, unspecified type MAGNESIUM Routine 07/08/2025 2:55 PM FOOD BEVERAGE ATTENDANT Proteinuria, unspecified type RENAL FUNCTION PANEL Routine 07/08/2025 2:55 PM FOOD BEVERAGE ATTENDANT Proteinuria, unspecified type PROTEIN/CREAT RATIO,URINE Routine 07/08/2025 2:55 PM FOOD BEVERAGE ATTENDANT Proteinuria, unspecified type UA W/ SEDIMENT EXAM REFLEXED PER CRITERIA Routine 07/08/2025 2:55 PM FOOD BEVERAGE ATTENDANT Proteinuria, unspecified type POTASSIUM Routine 07/03/2025 10:18 AM CDT Adenoma of left adrenal gland ALDOSTERONE LC/MS BLOOD Routine 07/03/20 10:18 AM CDT Adenoma of left adrenal gland CREATININE CLEARANCE SERUM Routine 06/07/2025 8:00 AM CDT Proteinuria, unspecified type CREATININE CLEARANCE URINE Routine 06/07/2025 8:00 AM CDT Proteinuria, unspecified type CREATININE CLEARANCE URINE Routine 06/07/2025 8:00 AM CDT Proteinuria, unspecified type IMMUNOFIXATION URINE TIMED Routine 06/07/2025 8:00 AM CDT Proteinuria, unspecified type URINALYSIS MICROSCOPIC Routine 3:39 PM CDT Proteinuria, unspecified type URINALYSIS MACROSCOPIC - [facility] ONLY POC DIP (QUEST) Routine 06/05/2025 3:39 PM CDT Proteinuria, unspecified type IMMUNOFIXATION ELP, URINE Routine 06/05/2025 3:39 PM CDT Proteinuria, unspecified type URINE ALBUMIN TO CREATININE RATIO, RANDOM Routine 06/05/2025 3:39 PM CDT Proteinuria, unspecified type PROTEIN/CREAT RATIO,URINE Routine 06/05/2025 3:39 PM CDT Proteinuria, unspecified type ANTINUCLEAR ANTIBODY BY IFA Routine 06/05/2025 3:32 PM CDT Proteinuria, unspecified type RA QUANTITATIVE Routine 06/05/2025 3:32 PM CDT Proteinuria, unspecified type CYCLIC CITRULLINE PEPTIDE Routine 06/05/2025 3:32 PM CDT Proteinuria, unspecified type CBC WITH AUTO DIFFERENTIAL Routine 06/05/2025 3:32 PM CDT Proteinuria, unspecified type BILIRUBIN,TOTAL/DIRECT Routine 3:32 PM CDT Proteinuria, unspecified type CALCIUM IONIZED OUTPT DRAW ONLY Routine 06/05/2025 3:32 PM CDT Proteinuria, unspecified type MAGNESIUM Routine 06/05/2025 3:32 PM CDT Proteinuria, unspecified type PTH,INTACT Routine 06/05/2025 3:32 PM CDT Proteinuria, unspecified type ANTI HCV Routine 06/05/2025 3:32 PM CDT Proteinuria, unspecified type ANTI HIV 1/2 Routine 06/05/2025 3:32 PM CDT Proteinuria, unspecified type CK TOTAL Routine 06/05/2025 3:32 PM CDT Proteinuria, unspecified type COMP METABOLIC PANEL Routine 06/05/2025 3:32 PM CDT Proteinuria, unspecified type PHOSPHOLIPASE A2 RECEPTOR Routine 06/05/2025 3:32 PM CDT Proteinuria, unspecified type ANTIGLOMERULAR BASEMENT MEMBRANE ANTIBODIES Routine 06/05/2025 3:32 PM CDT Proteinuria, unspecified type CYCLIC CITRULLINE PEPTIDE Routine 06/05/2025 3:32 PM CDT Proteinuria, unspecified type IMMUNOFIXATION,SERUM Routine 06/05/2025 3:32 PM CDT Proteinuria, unspecified type CBC WITH AUTO DIFFERENTIAL Routine 06/05/2025 3:32 PM CDT Proteinuria, unspecified type ELP AND FREE LIGHT CHAINS W REFLEX, BLOOD Routine 06/05/2025 3:32 PM CDT Proteinuria, unspecified type C4 COMPLEMENT Routine 06/05/2025 3:32 PM CDT Proteinuria, unspecified type ANCA PANEL FOR VASCULITIS Routine 06/05/2025 3:32 PM CDT Proteinuria, unspecified type RENAL FUNCTION PANEL Routine 06/05/2025 3:32 PM CDT Proteinuria, unspecified type HEMOGLOBIN Routine 05/29/2025 10:24 AM CDT Anemia of unknown etiology BASIC METABOLIC PANEL Routine 05/29/2025 10:24 AM CDT YOVANY (acute kidney injury) FOLIC ACID Routine 05/29/2025 10:24 AM CDT Macrocytic anemia CT CHEST ABDOMEN PELVIS W Routine 05/27/2025 10:50 AM CDT Necrotizing myopathy Inflammatory myopathy Weakness of both lower extremities ALDOLASE Routine 05/23/2025 11:27 AM CDT Necrotizing myopathy Inflammatory myopathy THIOPURINE METHYLTRANSFERASE Routine 05/23/2025 11:27 AM CDT Medication monitoring encounter PERIPHERAL BLD MORPHOLOGY Routine 05/20/2025 11:57 AM CDT Anemia of unknown etiology CK TOTAL Add On 05/20/2025 11:57 AM CDT Necrotizing myopathy TSH WITH REFLEX Add On 05/20/2025 11:57 AM CDT Macrocytic anemia VITAMIN B12 Add On 05/20/2025 11:57 AM CDT Macrocytic anemia FOLIC ACID Add On 05/20/2025 11:57 AM CDT Macrocytic anemia RED CELL MORPHOLOGY STAT 05/20/2025 11:57 AM CDT Polymyositis (HC) Anemia of unknown etiology CBC WITH AUTO DIFFERENTIAL STAT 05/20/2025 11:57 AM CDT Polymyositis (HC) Anemia of unknown etiology COMP METABOLIC PANEL Routine 05/20/2025 11:57 AM CDT Polymyositis (HC) YOVANY (acute kidney injury) RETICULOCYTES STAT 05/20/2025 11:57 AM CDT Polymyositis (HC) Anemia of unknown etiology CBC WITH AUTO DIFFERENTIAL STAT 05/20/2025 11:57 AM CDT Polymyositis (HC) Anemia of unknown etiology ANTI HCV Routine 05/09/2025 4:30 PM CDT RAPID HIV SCREEN Routine 05/09/2025 4:30 PM CDT RED CELL MORPHOLOGY Routine 05/01/2025 7 :05 AM CDT Chronic kidney disease, stage 3 unspecified (HC) Chronic obstructive pulmonary disease, unspecified (HC) Polymyositis, organ involvement unspecified (HC) PLATELET ESTIMATE Routine 05/01/2025 7:0 5 AM CDT Chronic kidney disease, stage 3 unspecified (HC) Chronic obstructive pulmonary disease, unspecified (HC) Polymyositis, organ involvement unspecified (HC) MANUAL DIFFERENTIAL Routine 05/01/2025 7 :05 AM CDT Chronic kidney disease, stage 3 unspecified (HC) Chronic obstructive pulmonary disease, unspecified (HC) Polymyositis, organ involvement unspecified (HC) CBC WITH AUTO DIFFERENTIAL Routine 05/01/2025 7:05 AM CDT Chronic kidney disease, stage 3 unspecified (HC) Chronic obstructive pulmonary disease, unspecified (HC) Polymyositis, organ involvement unspecified (HC) COMP METABOLIC PANEL Routine 05/01/2025 7:05 AM CDT Chronic kidney disease, stage 3 unspecified (HC) Chronic obstructive pulmonary disease, unspecified (HC) Polymyositis, organ involvement unspecified (HC) C-REACTIVE PROTEIN Routine 05/01/2025 7: 05 AM CDT Chronic kidney disease, stage 3 unspecified (HC) Chronic obstructive pulmonary disease, unspecified (HC) Polymyositis, organ involvement unspecified (HC) SEDIMENTATION RATE Routine 05/01/2025 7: 05 AM CDT Chronic kidney disease, stage 3 unspecified (HC) Chronic obstructive pulmonary disease, unspecified (HC) Polymyositis, organ involvement unspecified (HC) CBC WITH AUTO DIFFERENTIAL Routine 05/01/2025 7:05 AM CDT Chronic kidney disease, stage 3 unspecified (HC) Chronic obstructive pulmonary disease, unspecified (HC) Polymyositis, organ involvement unspecified (HC) PATH TISSUE EXAM Today 04/19/2025 8:06 AM CDT SUPRAGLOTTIC-LMA Routine 04/19/2025 7:50 AM CDT BIOPSY MUSCLE Class D Urgent: Inpt requiring surgery 04/19/2025 7:09 AM CDT WEAKNESS CREATININE Today 04/18/2025 11:15 AM CDT MR SPINE CERVICAL WO STAT 04/17/2025 8:32 PM CDT MR FEMUR RIGHT WO Routine 04/17/2025 8:3 1 PM CDT QFT MITOGEN PERFORMABLE Early AM 04/17/20 6:50 AM CDT QFT TB2 PERFORMABLE Early AM 04/17/2025 6 :50 AM CDT QFT TB1 PERFORMABLE Early AM 04/17/2025 6 :50 AM CDT QUANTIFERON TB GOLD PLUS Early AM 04/17/2025 6:50 AM CDT QUANTIFERON TB GOLD PLUS Early AM 04/17/2025 6:50 AM CDT IMMUNOGLOBULINS,IGG/A/M Early AM 04/17/20 6:50 AM CDT ANGIOTENSIN CONVERTING ENZYME Early AM 04/17/2025 6:50 AM CDT PROTEIN ELP,SERUM Early AM 04/17/2025 6:5 0 AM CDT LD,TOTAL Early AM 04/17/2025 6:50 AM CDT ALDOLASE Early AM 04/17/2025 6:50 AM CDT CK TOTAL Early AM 04/17/2025 6:50 AM CDT XR SPINE CERVICAL 3 VIEWS STAT 04/16/2025 7:41 PM CDT TSH MIKAELA 04/16/2025 5:04 AM CDT ACUTE HEPATITIS PANEL MIKAELA 04/16/2025 5:04 AM CDT CK TOTAL Early AM 04/16/2025 5:04 AM CDT SEDIMENTATION RATE Early AM 04/16/2025 5: 04 AM CDT HEMOGLOBIN Early AM 04/16/2025 5:04 AM CDT AST (SGOT) Early AM 04/16/2025 5:04 AM CDT ALT (SGPT) Early AM 04/16/2025 5:04 AM CDT CREATININE Early AM 04/16/2025 5:04 AM CDT C-REACTIVE PROTEIN Today 04/15/2025 11:59 PM CDT ALDOLASE STAT 04/15/2025 3:18 PM CDT MR HEAD BRAIN WWO STAT 04/15/2025 2:2 8 PM CDT HEPATIC FUNCTION PANEL MIKAELA 12:15 PM CDT CBC WITH AUTO DIFFERENTIAL STAT 04/15/2025 12:15 PM CDT C-REACTIVE PROTEIN STAT 04/15/2025 12:15 PM CDT SEDIMENTATION RATE STAT 04/15/2025 12:15 PM CDT CK TOTAL STAT 04/15/2025 12:15 PM CDT BASIC METABOLIC PANEL STAT 04/15/2025 12:15 PM CDT CBC WITH AUTO DIFFERENTIAL STAT 04/15/2025 12:15 PM CDT SCAN-CARDIAC STRIP 04/15/2025 12:00 AM CDT SCAN-MRI INTERPRETATION 04/09/20 12:00 AM CDT SCAN-MRI INTERPRETATION 04/09/20 12:00 AM CDT from Last 3 Months Results * (ABNORMAL) URINALYSIS MICROSCOPIC (07/08/2025 2:55 PM FOOD BEVERAGE ATTENDANT) Only the most recent of2 resultswithin the time period is included. RBC 0-2 0-2, None Seen /HPF 07/09/2025 2:16 AM FOOD BEVERAGE ATTENDANT [facility] TRAL LABORATORY WBC 26-50(A) 0-2, 3-5, None Seen /HPF 07/09/2025 2:16 AM FOOD BEVERAGE ATTENDANT [facility] BACTERIA Many(A) None Seen, Rare, Few Bacteria/ HPF 07/09/2025 2:16 AM FOOD BEVERAGE ATTENDANT [facility] EPITHELIAL CELLS None Seen None Seen, Few Epi/HPF 07/09/2025 2:16 AM FOOD BEVERAGE ATTENDANT [facility] HYALINE CASTS 3-5 0-2, 3-5 /LPF 07/09/2025 2:16 AM FOOD BEVERAGE ATTENDANT [facility] Urine URINE SPECIMEN / Unknown Non-Blood / Unknown 07/08/2025 2:55 PM FOOD BEVERAGE ATTENDANT 07/08/2025 2:56 PM FOOD BEVERAGE ATTENDANT Carla SIDDIQUI URINE Final Result Performing Organization Address [facility] Co de Phone Number [facility] [address] [place] [address], [place] * (ABNORMAL) PROTEIN/CREAT RATIO,URINE (07/08/2025 2:55 PM FOOD BEVERAGE ATTENDANT) Only the most recent of2 resultswithin the time period is included. PROTEIN QUANT,RAND URINE 18(H) 1 - 14 mg/dL 07/09/2025 12:33 AM FOOD BEVERAGE ATTENDANT [facility] CREAT,RANDOM URINE 75.7 28.0 - 217.0 mg/dL 07/09/2025 12:33 AM FOOD BEVERAGE ATTENDANT [facility] PROT/CREAT RATIO,UR 0.2(H) <0.2 07/09/2025 12:33 AM FOOD BEVERAGE ATTENDANT [facility] Urine URINE SPECIMEN / Unknown Non-Blood / Unknown 07/08/2025 2:55 PM FOOD BEVERAGE ATTENDANT 07/08/2025 2:56 PM FOOD BEVERAGE ATTENDANT Carla VELÁZQUEZ URINE Final Result Performing Organization Address City/[facility] Co de Phone Number [facility] [address] [place] [address], [place] * (ABNORMAL) URINE ALBUMIN TO CREATININE RATIO, RANDOM (07/08/2025 2:55 PM FOOD BEVERAGE ATTENDANT) Only the most recent of2 resultswithin the time period is included. ALB RAND URINE 31.0 mg/L 07/09/2025 12:33 AM FOOD BEVERAGE ATTENDANT [facility] CREATININE,URIN E 0.76 g/L 07/09/2025 12:33 AM FOOD BEVERAGE ATTENDANT [facility] ALBUMIN TO CREATININE RATIO,RAND UR 40.8(H) <30.0 mg/g creat 07/09/2025 12:33 AM FOOD BEVERAGE ATTENDANT [facility] Urine URINE SPECIMEN / Unknown Non-Blood / Unknown 07/08/2025 2:55 PM FOOD BEVERAGE ATTENDANT 07/08/2025 2:56 PM FOOD BEVERAGE ATTENDANT [facility] LABORATORY - 07/09/2025 12:33 AM FOOD BEVERAGE ATTENDANT If Albumin to Creatinine Ratio is elevated, consider the following: Elevations seen with incipient nephropathy associated with diabetes mellitus or hypertension. Stress, exercise,hematuria, and urinary tract infection may also produce elevated results. If clinically indicated, confirm with 24 Hour Albumin to Creatinine Ratio. Carla VELÁZQUEZ URINE Final Result [facility] [address] [place] [address], [place] * (ABNORMAL) UA W/ SEDIMENT EXAM REFLEXED PER CRITERIA (07/08/2025 2:55 PM FOOD BEVERAGE ATTENDANT) COLOR Yellow Yellow Color 07/09/2025 2:16 AM FOOD BEVERAGE ATTENDANT [facility]- NTRAL LABORATORY CLARITY Clear Clear Clarity 07/09/2025 2:16 AM FOOD BEVERAGE ATTENDANT [facility] NTRAL LABORATORY SPECIFIC GRAVITY,URINE 1.010 1.010, 1.015, 1.020, 1.025 07/09/2025 2:16 AM FOOD BEVERAGE ATTENDANT [facility] NTRFL LABORATORY PH,URINE 5.5 6.0, 7.0, 8.0, 5.5, 6.5, 7.5, 8.5 07/09/2025 2:16 AM FOOD BEVERAGE ATTENDANT [facility] UROBILINOGEN, QUALITATIVE Normal Normal EU/dl 07/09/2025 2:16 AM FOOD BEVERAGE ATTENDANT [facility] PROTEIN, URINE Trace(A) Negative mg/dL 07/09/2025 2:16 AM FOOD BEVERAGE ATTENDANT [facility] GLUCOSE, URINE Negative Negative mg/dL 07/09/2025 2:16 AM FOOD BEVERAGE ATTENDANT [facility] NTRFL LABORATORY KETONES,URINE Negative Negative mg/dL 07/09/2025 2:16 AM FOOD BEVERAGE ATTENDANT [facility] BILIRUBIN,URI NE Negative Negative 07/09/2025 2:16 AM FOOD BEVERAGE ATTENDANT [facility] OCCULT BLOOD,URINE Negative Negative 07/09/2025 2:16 AM FOOD BEVERAGE ATTENDANT [facility] NTRFL LABORATORY NITRITE Negative Negative 07/09/2025 2:16 AM FOOD BEVERAGE ATTENDANT [facility] LEUKOCYTE ESTERASE Moderate(A) Negative 07/09/2025 2:16 AM FOOD BEVERAGE ATTENDANT [facility] Urine URINE SPECIMEN / Unknown Non-Blood / Unknown 07/08/2025 2:55 PM FOOD BEVERAGE ATTENDANT 07/08/2025 2:56 PM FOOD BEVERAGE ATTENDANT Carla VELÁZQUEZ URINE Final Result [facility] [address] [place] [address], [place] * (ABNORMAL) MAGNESIUM (07/08/2025 2:55 PM FOOD BEVERAGE ATTENDANT) Only the most recent of2 resultswithin the time period is included. MAGNESIUM 2.8(H) 1.5 - 2.5 mg/dL 07/09/2025 4:46 AM FOOD BEVERAGE ATTENDANT [facility] Blood BLOOD SPECIMEN / Unknown [facility] / Unknown 07/08/2025 2:55 PM FOOD BEVERAGE ATTENDANT 07/08/2025 2:56 PM FOOD BEVERAGE ATTENDANT Carla VELÁZQUEZ CHEMISTRY Final Result [facility] [address] [place] [address], * (ABNORMAL) RENAL FUNCTION PANEL (07/08/2025 2:55 PM FOOD BEVERAGE ATTENDANT) Only the most recent of2 resultswithin the time period is included. SODIUM 144 135 - 146 mmol/L 07/09/2025 4:46 AM FOOD BEVERAGE ATTENDANT [facility] POTASSIUM 5.7(H) 3.5 - 5.3 mmol/L 07/09/2025 4:46 AM FOOD BEVERAGE ATTENDANT [facility] CHLORIDE 103 98 - 110 mmol/L 07/09/2025 4:46 AM FOOD BEVERAGE ATTENDANT [facility] CARBON DIOXIDE 27 20 - 32 mmol/L 07/09/2025 4:46 AM FOOD BEVERAGE ATTENDANT [facility] GLUCOSE 136(H) 65 - 99 mg/dL 07/09/2025 4:46 AM FOOD BEVERAGE ATTENDANT [facility] Comment: Fasting reference interval For someone without known diabetes, a glucose value >125 mg/dL indicates that they may have diabetes and this should be confirmed with a follow-up test. CALCIUM 9.6 8.6 - 10.4 mg/dL 07/09/2025 4:46 AM FOOD BEVERAGE ATTENDANT [facility] UREA NITROGEN (BUN) 73(H) 7 - 25 mg/dL 07/09/2025 4:46 AM FOOD BEVERAGE ATTENDANT [facility] CREATININE 2.27(H) 0.60 - 1.00 mg/dL 07/09/2025 4:46 AM FOOD BEVERAGE ATTENDANT [facility] BUN/CREATININE RATIO 32(H) 6 - 22 (calc) 07/09/2025 4:46 AM FOOD BEVERAGE ATTENDANT [facility] EGFR 22(L) > OR = 60 mL/min/1.7 3m2 07/09/2025 4:46 AM FOOD BEVERAGE ATTENDANT [facility] PHOSPHATE ( PHOSPHORUS) 6.0(H) 2.1 - 4.3 mg/dL 07/09/2025 4:46 AM FOOD BEVERAGE ATTENDANT [facility] ALBUMIN 4.2 3.6 - 5.1 g/dL 07/09/2025 4:46 AM FOOD BEVERAGE ATTENDANT [facility] Blood BLOOD SPECIMEN / Unknown [facility] / Unknown 07/08/2025 2:55 PM FOOD BEVERAGE ATTENDANT 07/08/2025 2:56 PM FOOD BEVERAGE ATTENDANT us Ahmed Zeen Alabedeen Alrifai MBBS CHEMISTRY Final Result Performing Organization Address [facility]/ZIP Co de Phone Number [facility] [address] [phone], * ALDOSTERONE LC/MS BLOOD (07/03/2025 10:18 AM CDT) ALDOSTERONE, LC/MS/MS 4 ng/dL 07/09/2025 2:04 PM FOOD BEVERAGE ATTENDANT [facility] Comment: Adult Reference Ranges for Aldosterone: Upright 8:00-10:00 am < or = 28 ng/dL Upright 4:00-6:00 pm < or = 21 ng/dL Supine 8:00-10:00 am 3-16 ng/dL This test was developed and its analytical performance characteristics have been determined by [employer]. It has not been cleared or approved by the FDA. This assay has been validated pursuant to the CLIA regulations and is used for clinical purposes. Blood BLOOD SPECIMEN / Unknown [facility] / Unknown 07/03/2025 10:18 AM CDT 07/03/2025 10:22 AM CDT Narrative [facility] - 07/09/2025 2:04 PM FOOD BEVERAGE ATTENDANT FASTING:UNKNOWN FASTING: UNKNOWN Sandy Campuzano MD SEND OUTS Final Result Performing Organization Address [facility] Co de Phone Number [facility] [address] [phone], * POTASSIUM (07/03/2025 10:18 AM CDT) POTASSIUM 4.8 3.5 - 5.3 mmol/L 07/04/2025 3:58 AM CDT [facility] Blood BLOOD SPECIMEN / Unknown [facility] / Unknown 07/03/2025 10:18 AM CDT 07/03/2025 10:22 AM CDT Narrative [facility] - 07/04/2025 3:58 AM CDT FASTING:UNKNOWN FASTING: UNKNOWN us Sandy Campuzano MD CHEMISTRY Final Result [facility] [place] [place] [address], * (ABNORMAL) IMMUNOFIXATION URINE TIMED (06/07/2025 8:00 AM CDT) COLLECTION HRS 24 hr 06/11/2025 4:01 PM CDT [facility] IFIX INTERP, URINE Immunofixation on urine shows no monoclonal protein detected and no free light chains detected. Interpreted and electronically signed by: Dolores Mccormack MD 06/11/2025 4:01 PM CDT [facility] TOTAL VOLUME 1,250 mL 06/11/2025 4:01 PM CDT [facility] PROTEIN,RAW URINE 13 mg/dL 06/11/2025 4:01 PM CDT [facility] PROTEIN,TIMED URINE 163(H) <150 mg/24hr 06/11/2025 4:01 PM CDT [facility] Urine URINE SPECIMEN / Unknown Non-Blood / Unknown 06/07/2025 8:00 AM CDT 06/07/2025 9:42 AM CDT Carla SIDDIQUI URINE Final Result [facility] [address] [place] [phone], * (ABNORMAL) CREATININE CLEARANCE SERUM (06/07/2025 8:00 AM CDT) eGFR 40(L) >90 mL/min/1.7 3m2 06/07/2025 2:38 PM CDT [facility] Comment:As of 2021, eG FR is calculated by the CKD-EPI creatinine equation without race adjustment. eGFR can be influenced by muscle mass, exercise, and diet. The reported eGFR is an estimation only and is only applicable if the renal function is stable. CREATININE 1.37(H) 0.50 - 0.90 mg/dL 06/07/2025 2:38 PM CDT [facility] Blood BLOOD SPECIMEN / Unknown Non-Lab Venipuncture / Unknown 06/07/2025 8:00 AM CDT 06/07/2025 9:42 AM CDT us Carla VELÁZQUEZ CHEMISTRY Final Result [facility] [address] [place] [address], * (ABNORMAL) CREATININE CLEARANCE URINE (06/07/2025 8:00 AM CDT) TOTAL VOLUME 1,250 mL 06/07/2025 7:33 PM CDT [facility] COLLECTION HRS 24 hr 06/07/2025 7:33 PM CDT [facility] WEIGHT,POUNDS 191.0 lb 06/07/2025 7:33 PM CDT [facility] HEIGHT,INCHES 5.0 in 06/07/2025 7:33 PM CDT [facility] SURFACE AREA 0.30 06/07/2025 7:33 PM CDT [facility] CREATININE RAW URINE 72 mg/dL 06/07/2025 7:33 PM CDT [facility] UNCORRECTED CREAT CLR 46 mL/min 06/07/2025 7:33 PM CDT [facility] CREATININE CLEARANCE 261(H) 66 - 165 ml/min/1.7 3m2 06/07/2025 7:33 PM CDT [facility] Urine URINE SPECIMEN / Unknown Non-Blood / Unknown 06/07/2025 8:00 AM CDT 06/07/2025 9:42 AM CDT us Carla VELÁZQUEZ URINE Final Result [facility] [address] [place] [address], [place] * (ABNORMAL) POCT Urinalysis Dipstick Only [[id number]] (06/05/2025 3:39 PM CDT) COLOR Yellow Yellow Color 06/05/2025 3:45 PM CDT [facility] CLARITY Slightly Cloudy(A) Clear Clarity 06/05/2025 3:45 PM CDT [facility] SPECIFIC GRAVITY,URINE 1.015 1.010, 1.015, 1.020, 1.025 06/05/2025 3:45 PM CDT [facility] PH,URINE 5.5 6.0, 7.0, 8.0, 5.5, 6.5, 7.5, 8.5 06/05/2025 3:45 PM CDT [facility] UROBILINOGEN, QUALITATIVE Normal Normal EU/dl 06/05/2025 3:45 PM CDT [facility] PROTEIN, URINE Negative Negative mg/dL 06/05/2025 3:45 PM CDT [facility] GLUCOSE, URINE Negative Negative mg/dL 06/05/2025 3:45 PM CDT [facility] KETONES,URINE Negative Negative mg/dL 06/05/2025 3:45 PM CDT [facility] BILIRUBIN,URI NE Negative Negative 06/05/2025 3:45 PM CDT [facility] OCCULT BLOOD,URINE Negative Negative 06/05/2025 3:45 PM CDT [facility] NITRITE Negative Negative 06/05/2025 3:45 PM CDT [facility] LEUKOCYTE ESTERASE Negative Negative 06/05/2025 3:45 PM CDT [facility] Urine URINE SPECIMEN / Unknown Non-Blood / Unknown 06/05/2025 3:39 PM CDT 06/05/2025 3:39 PM CDT us Carla VELÁZQUEZ URINE Final Result [facility] [address] [place] [address], [place] * IMMUNOFIXATION ELP, URINE (06/05/2025 3:39 PM CDT) Pathologist [facility] IFIX INTERP,URINE Immunofixation on urine shows no monoclonal protein detected and no free light chains detected. Interpreted and electronically signed by: Bettye Wooten MD 06/10/2025 4:53 PM CDT [facility]FL LABORATORY PROTEIN QUANT,RAND URINE 8 1 - 14 mg/dL 06/10/2025 4:53 PM CDT [facility]- [facility] LABORAT[facility] Urine URINE SPECIMEN / Unknown Non-Blood / Unknown 06/05/2025 3:39 PM CDT 06/05/2025 3:39 PM CDT Carla VELÁZQUEZ URINE Final Result [facility] LAB[facility] [address] [place] [address], [place] * PHOSPHOLIPASE A2 RECEPTOR (06/05/2025 3:32 PM CDT) Pathologist [facility] PHOSPHOLIPASE A2 RECEPTOR (PLA2R) AB, JOSE <4 RU/mL 06/11/2025 6:01 PM CDT [facility] Comment: Reference Range: <14: NEGATIVE 14-19: BORDERLINE >19: POSITIVE Blood BLOOD SPECIMEN / Unknown Non-Lab Venipuncture / Unknown 06/05/2025 3:32 PM CDT 06/05/2025 3:32 PM CDT Carla VELÁZQUEZ LABORATORY Final Result [facility] [address] [address], [place] [phone] * (ABNORMAL) ELP AND FREE LIGHT CHAINS W REFLEX, BLOOD (06/05/2025 3:32 PM CDT) Pathologist [facility] ELP,ALBUMIN 3.97 3.31 - 5.31 g/dL 06/10/2025 4:36 PM CDT [facility] ELP,ALPHA 1 0.40 0.19 - 0.42 g/dL 06/10/2025 4:36 PM CDT [facility] ELP,ALPHA 2 1.09(H) 0.44 - 1.03 g/dL 06/10/2025 4:36 PM CDT [facility] ELP,GAMMA 0.47(L) 0.59 - 1.46 g/dL 06/10/2025 4:36 PM CDT [facility] ELP,BETA 0.76 0.52 - 1.05 g/dL 06/10/2025 4:36 PM CDT [facility] KAPPA FREE LIGHT CHAIN, S 1.81 0.33 - 1.94 mg/dL 06/10/2025 4:36 PM CDT [facility] LAMBDA FREE LIGHT CHAIN, S 1.30 0.57 - 2.63 mg/dL 06/10/2025 4:36 PM CDT [facility] KAPPA/LAMBDA FLC RATIO 1.39 0.26 - 1.65 06/10/2025 4:36 PM CDT [facility] ELP INTERP,SERUM 1. Mild hypogammaglobulin emia, non-specific pattern. No monoclonal protein detected. 2. Increased Alpha-globulins, probably reactive. Interpreted and electronically signed by: Bettye Wooten MD 06/10/2025 4:36 PM CDT [facility] PROTEIN,TOTAL 6.7 6.0 - 8.0 g/dL 06/10/2025 4:36 PM CDT [facility] Blood BLOOD SPECIMEN / Unknown Non-Lab Venipuncture / Unknown 06/05/2025 3:32 PM CDT 06/05/2025 3:32 PM CDT Carla VELÁZQUEZ CHEMISTRY Final Result [facility] LAB[facility] [address] [address], * ANTINUCLEAR ANTIBODY BY IFA (06/05/2025 3:32 PM CDT) PAVITHRA SCREEN, IFA NEGATIVE NEGATIVE 5:51 PM CDT [facility] Comment: PAVITHRA IFA is a first line screen for detecting the presence of up to approximately 150 autoantibodies in various autoimmune diseases. A negative PAVITHRA IFA result suggests an PAVITHRA-associated autoimmune disease is not present at this time, but is not definitive. If there is high clinical suspicion for Sjogren's syndrome, testing for anti-SS-A/Ro antibody should be considered. Anti-Dona-1 antibody should be considered for clinically suspected inflammatory myopathies. AC-0: Negative International Consensus on PAVITHRA Patterns (https://doi.org/10.1515/ewnr-2390-9419) For additional information, please refer to http://education.DocumentCloud/faq/QID435 (This link is being provided for informational/ educational purposes only.) Blood BLOOD SPECIMEN / Unknown Non-Lab Venipuncture / Unknown 06/05/2025 3:32 PM CDT 06/05/2025 3:32 PM CDT Carla VELÁZQUEZ CHEMISTRY Final Result [facility] [address] [address], [place] [phone] * ANTIGLOMERULAR BASEMENT MEMBRANE ANTIBODIES (06/05/2025 3:32 PM CDT) GLOMERULAR BASEMENT MEMBRANE ANTIBODY (IGG) <1.0 AI 06/07/2025 1:04 PM CDT [facility] Comment: Value Interpretation ----- <1.0 No Antibody Detected > or = 1.0 Antibody Detected Blood BLOOD SPECIMEN / Unknown Non-Lab Venipuncture / Unknown 06/05/2025 3:32 PM CDT 06/05/2025 3:32 PM CDT Carla VELÁZQUEZ SEND OUTS Final Result [facility] [address] [place] [address], [place] [phone] * (ABNORMAL) CBC WITH AUTO DIFFERENTIAL (06/05/2025 3:32 PM CDT) Only the most recent of4 resultswithin the time period is included. WHITE BLOOD CELL COUNT 8.8 3.8 - 10.8 Thousand/ uL 06/06/2025 7:45 AM CDT [facility] RED BLOOD CELL COUNT 4.05 3.80 - 5.10 Million/u L 06/06/2025 7:45 AM CDT [facility] HEMOGLOBIN 12.3 11.7 - 15.5 g/dL 06/06/2025 7:45 AM CDT [facility] HEMATOCRIT 38.7 35.0 - 45.0 % 06/06/2025 7:45 AM CDT [facility] MCV 95.6 80.0 - 100.0 fL 06/06/2025 7:45 AM CDT [facility] MCH 30.4 27.0 - 33.0 pg 06/06/2025 7:45 AM CDT [facility] MCHC 31.8(L) 32.0 - 36.0 g/dL 06/06/2025 7:45 AM CDT [facility] Comment: For adults, a slight decrease in the calculated MCHC value (in the range of 30 to 32 g/dL) is most likely not clinically significant; however, it should be interpreted with caution in correlation with other red cell parameters and the patient's clinical condition. RDW 13.3 11.0 - 15.0 % 06/06/2025 7:45 AM CDT [facility] PLATELET COUNT 267 140 - 400 Thousand/ uL 06/06/2025 7:45 AM CDT [facility] MPV 10.0 7.5 - 12.5 fL 06/06/2025 7:45 AM CDT [facility] NEUTROPHILS 85.3 % 06/06/2025 7:45 AM CDT [facility] LYMPHOCYTES 10.3 % 06/06/2025 7:45 AM CDT [facility] MONOCYTES 3.3 % 06/06/2025 7:45 AM CDT [facility] EOSINOPHILS 0.6 % 06/06/2025 7:45 AM CDT [facility] BASOPHILS 0.5 % 06/06/2025 7:45 AM CDT [facility] ABSOLUTE NEUTROPHILS 7506 1500 - 7800 cells/uL 06/06/2025 7:45 AM CDT [facility] ABSOLUTE LYMPHOCYTES 906 850 - 3900 cells/uL 06/06/2025 7:45 AM CDT [facility] ABSOLUTE MONOCYTES 290 200 - 950 cells/uL 06/06/2025 7:45 AM CDT [facility] ABSOLUTE EOSINOPHILS 53 15 - 500 cells/uL 06/06/2025 7:45 AM CDT [facility] ABSOLUTE BASOPHILS 44 0 - 200 cells/uL 06/06/2025 7:45 AM CDT [facility] Blood BLOOD SPECIMEN / Unknown Non-Lab Venipuncture / Unknown 06/05/2025 3:32 PM CDT 06/05/2025 3:32 PM CDT Carla VELÁZQUEZ HEMATOLOGY Final Result Performing Organization Address [facility]/ZIP Co de Phone Number [facility] [address] [address], [place] [phone] * CALCIUM IONIZED OUTPT DRAW ONLY (06/05/2025 3:32 PM CDT) CALCIUM, IONIZED 5.1 4.7 - 5.5 mg/dL 06/06/2025 10:41 AM CDT [facility] Blood BLOOD SPECIMEN / Unknown Non-Lab Venipuncture / Unknown 06/05/2025 3:32 PM CDT 06/05/2025 3:32 PM CDT Carla VELÁZQUEZ CHEMISTRY Final Result Performing Organization Address [facility]/ZIP Co de Phone Number [facility] [address] [address], [place] [phone] * CYCLIC CITRULLINE PEPTIDE (06/05/2025 3:32 PM CDT) CYCLIC CITRULLINATED PEPTIDE (CCP) AB (IGG) <16 UNITS 06/06/2025 12:40 PM CDT [facility] Comment: Reference Range Negative: <20 Weak Positive: 20-39 Moderate Positive: 40-59 Strong Positive: >59 Blood BLOOD SPECIMEN / Unknown Non-Lab Venipuncture / Unknown 06/05/2025 3:32 PM CDT 06/05/2025 3:32 PM CDT Carla VELÁZQUEZ SEND OUTS Final Result Performing Organization Address [facility] Co de Phone Number [facility] [address] [address], [place] [phone] * (ABNORMAL) IMMUNOFIXATION,SERUM (06/05/2025 3:32 PM CDT) Pathologist [facility] IGG 471.31(L) 610.30 - 1,616.00 mg/dL 06/10/2025 4:36 PM CDT [facility] IGA 144.45 84.50 - 499.00 mg/dL 06/10/2025 4:36 PM CDT [facility] IGM 52.77 35.00 - 242.00 mg/dL 06/10/2025 4:36 PM CDT [facility] IFIX INTERP,SERUM Immunofixation on serum shows no monoclonal protein detected and no free light chains detected. Interpreted and electronically signed by: Bettye Wooten MD 06/10/2025 4:36 PM CDT [facility] Blood BLOOD SPECIMEN / Unknown Non-Lab Venipuncture / Unknown 06/05/2025 3:32 PM CDT 06/05/2025 3:32 PM CDT Carla VELÁZQUEZ CHEMISTRY Final Result Performing Organization Address City/[facility]/ZIP Co de Phone Number [facility] [address] [place] [address], * ANCA PANEL FOR VASCULITIS (06/05/2025 3:32 PM CDT) [facility] ANCA SCREEN NEGATIVE NEGATIVE 06/07/2025 9:13 AM CDT [facility] Comment: ANCA screen uses indirect immunofluorescence to detect antibodies to neutrophil cytoplasmic antigens. A positive screen reflexes to titer and pattern. Patterns include cytoplasmic (c-ANCA) and perinuclear (p-ANCA) both of which are associated with vasculitis, and atypical p-ANCA which is associated with inflammatory bowel disease and other disorders. Blood BLOOD SPECIMEN / Unknown Non-Lab Venipuncture / Unknown 06/05/2025 3:32 PM CDT 06/05/2025 3:32 PM CDT Carla VELÁZQUEZ SEND OUTS Final Result Performing Organization Address [facility] de Phone Number [facility] [address] [address], [place] [phone] * BILIRUBIN,TOTAL/DIRECT (06/05/2025 3:32 PM CDT) [facility] BILIRUBIN, TOTAL 0.5 0.2 - 1.2 mg/dL 06/06/2025 9:48 AM CDT [facility] BILIRUBIN, DIRECT 0.1 < OR = 0.2 mg/dL 06/06/2025 9:48 AM CDT [facility] BILIRUBIN, INDIRECT 0.4 0.2 - 1.2 mg/dL (calc) 06/06/2025 9:48 AM CDT [facility] Blood BLOOD SPECIMEN / Unknown Non-Lab Venipuncture / Unknown 06/05/2025 3:32 PM CDT 06/05/2025 3:32 PM CDT Carla VELÁZQUEZ CHEMISTRY Final Result Performing Organization Address [facility] Co de Phone Number [employer] [address] [address], [place] [phone] * ANTI HCV (06/05/2025 3:32 PM CDT) Only the most recent of2 resultswithin the time period is included. [facility] HEPATITIS C ANTIBODY NON-REACT TASNEEM NON-REACT TASNEEM 06/06/2025 1:47 PM CDT [facility] Comment: HCV antibody was non-reactive. There is no laboratory evidence of HCV infection. In most cases, no further action is required. However, if recent HCV exposure is suspected, a test for HCV RNA (test code 68271) is suggested. For additional information please refer to http://education.[employer]/faq/GFV56r3 (This link is being provided for informational/ educational purposes only.) Blood BLOOD SPECIMEN / Unknown Non-Lab Venipuncture / Unknown 06/05/2025 3:32 PM CDT 06/05/2025 3:32 PM CDT Carla VELÁZQUEZ SEND OUTS Final Result Performing Organization Address City/[facility]/ZIP Co de Phone Number [facility] [address] [address], * RA QUANTITATIVE (06/05/2025 3:32 PM CDT) [facility] RHEUMATOID FACTOR <10 <14 IU/mL 06/06/2025 10:55 AM CDT [facility] Blood BLOOD SPECIMEN / Unknown Non-Lab Venipuncture / Unknown 06/05/2025 3:32 PM CDT 06/05/2025 3:32 PM CDT Carla VELÁZQUEZ SEND OUTS Final Result Performing Organization Address City/[facility]/ZIP Co de Phone Number [facility] [address] [place] [address], [place] [phone] * C4 COMPLEMENT (06/05/2025 3:32 PM CDT) [facility] COMPLEMENT COMPONENT C4C 25 15 - 57 mg/dL 06/06/2025 4:05 PM CDT [facility] Blood BLOOD SPECIMEN / Unknown Non-Lab Venipuncture / Unknown 06/05/2025 3:32 PM CDT 06/05/2025 3:32 PM CDT Carla VELÁZQUEZ CHEMISTRY Final Result Performing Organization Address [facility] de Phone Number [facility] [address] [address], [place] [phone] * ANTI HIV 1/2 (06/05/2025 3:32 PM CDT) [facility] HIV FINAL INTERPRETATOIN HIV NEGATIVE 06/06/2025 1:47 PM CDT [facility] Comment: HIV-1 antigen and HIV-1/HIV-2 antibodies were not detected. There is no laboratory evidence of HIV infection. HIV AG/AB, 4TH GEN NON-REACTIV E NON-REAC TIVE 06/06/2025 1:47 PM CDT [facility] Blood BLOOD SPECIMEN / Unknown Non-Lab Venipuncture / Unknown 06/05/2025 3:32 PM CDT 06/05/2025 3:32 PM CDT Carla VELÁZQUEZ SEND OUTS Final Result Performing Organization Address [facility] de Phone Number [facility] [address] [address], [place] [phone] * PTH,INTACT (06/05/2025 3:32 PM CDT) [facility] PARATHYROID HORMONE, INTACT 60 16 - 77 pg/mL 06/06/2025 1:23 PM CDT [facility] Comment: Interpretive Guide Intact PTH Calcium ------- Normal Parathyroid Normal Normal Hypoparathyroidism Low or Low Normal Low Hyperparathyroidism Primary Normal or High High Secondary High Normal or Low Tertiary High High Non-Parathyroid Hypercalcemia Low or Low Normal High CALCIUM 9.8 8.6 - 10.4 mg/dL 06/06/2025 1:23 PM CDT [facility] Blood BLOOD SPECIMEN / Unknown Non-Lab Venipuncture / Unknown 06/05/2025 3:32 PM CDT 06/05/2025 3:32 PM CDT Carla VELÁZQUEZ SEND OUTS Final Result Performing Organization Address [facility]/ZIP Co de Phone Number [facility] [address] [address], [place] [phone] * CK TOTAL (06/05/2025 3:32 PM CDT) Only the most recent of5 resultswithin the time period is included. CREATINE KINASE, TOTAL 30 18 - 225 U/L 06/06/2025 9:48 AM CDT [facility] Blood BLOOD SPECIMEN / Unknown Non-Lab Venipuncture / Unknown 06/05/2025 3:32 PM CDT 06/05/2025 3:32 PM CDT Carla VELÁZQUEZ CHEMISTRY Final Result Performing Organization Address [facility] de Phone Number [facility] [address] [address], [place] [phone] * (ABNORMAL) COMP METABOLIC PANEL (06/05/2025 3:32 PM CDT) Only the most recent of3 resultswithin the time period is included. SODIUM 144 135 - 146 mmol/L 06/06/2025 9:48 AM CDT [facility] POTASSIUM 4.0 3.5 - 5.3 mmol/L 06/06/2025 9:48 AM CDT [facility] CHLORIDE 97(L) 98 - 110 mmol/L 06/06/2025 9:48 AM CDT [facility] CARBON DIOXIDE 34(H) 20 - 32 mmol/L 06/06/2025 9:48 AM CDT [facility] GLUCOSE 177(H) 65 - 99 mg/dL 06/06/2025 9:48 AM CDT [facility] Comment: Fasting reference interval For someone without known diabetes, a glucose value >125 mg/dL indicates that they may have diabetes and this should be confirmed with a follow-up test. CALCIUM 10.0 8.6 - 10.4 mg/dL 06/06/2025 9:48 AM CDT [facility] CREATININE 1.60(H) 0.60 - 1.00 mg/dL 06/06/2025 9:48 AM CDT [facility] BUN/CREATININE RATIO 21 6 - 22 (calc) 06/06/2025 9:48 AM CDT [facility] EGFR 33(L) > OR = 60 mL/min/1. 73m2 06/06/2025 9:48 AM CDT [facility] ALBUMIN 4.1 3.6 - 5.1 g/dL 06/06/2025 9:48 AM CDT [facility] PROTEIN, TOTAL 6.7 6.1 - 8.1 g/dL 06/06/2025 9:48 AM CDT [facility] BILIRUBIN, TOTAL 0.5 0.2 - 1.2 mg/dL 06/06/2025 9:48 AM CDT [facility] ALKALINE PHOSPHATASE 50 37 - 153 U/L 06/06/2025 9:48 AM CDT [facility] ALT 14 6 - 29 U/L 06/06/2025 9:48 AM CDT [facility] AST 12 10 - 35 U/L 06/06/2025 9:48 AM CDT [facility] UREA NITROGEN (BUN) 34(H) 7 - 25 mg/dL 06/06/2025 9:48 AM CDT [facility] GLOBULIN 2.6 1.9 - 3.7 g/dL (calc) 06/06/2025 9:48 AM CDT [facility] ALBUMIN/GLOBULIN RATIO 1.6 1.0 - 2.5 (calc) 06/06/2025 9:48 AM CDT [facility] Blood BLOOD SPECIMEN / Unknown Non-Lab Venipuncture / Unknown 06/05/2025 3:32 PM CDT 06/05/2025 3:32 PM CDT us Carla Matthews [facility] CHEMISTRY Final Result Performing Organization Address [facility]/ZIP Co de Phone Number [facility] [address] [address], * (ABNORMAL) HEMOGLOBIN (05/29/2025 10:24 AM CDT) Only the most recent of2 resultswithin the time period is included. Pathologist [facility] HEMOGLOBIN 11.3(L) 11.7 - 15.5 g/dL 05/30/2025 4:50 AM CDT [facility] MCV 97.6 80.0 - 100.0 fL 05/30/2025 4:50 AM CDT [facility] Blood BLOOD SPECIMEN / Unknown [facility] / Unknown 05/29/2025 10:24 AM CDT 05/29/2025 10:24 AM CDT Nimisha Watsonq DO HEMATOLOGY Final Result Performing Organization Address [facility] Co de Phone Number [facility] [address] [address], * (ABNORMAL) FOLIC ACID (05/29/2025 10:24 AM CDT) Only the most recent of2 resultswithin the time period is included. Pathologist [facility] FOLATE, SERUM 3.8(L) ng/mL 05/30/2025 7:30 AM CDT [facility] Comment: Reference Range Low: <3.4 Borderline: 3.4-5.4 Normal: >5.4 Blood BLOOD SPECIMEN / Unknown [facility] / Unknown 05/29/2025 10:24 AM CDT 05/29/2025 10:24 AM CDT Nimisha Watsonq DO CHEMISTRY Final Result Performing Organization Address [facility] Co de Phone Number [facility] [address] [address], * (ABNORMAL) BASIC METABOLIC PANEL (05/29/2025 10:24 AM CDT) Only the most recent of2 resultswithin the time period is included. SODIUM 148(H) 135 - 146 mmol/L 05/30/2025 5:23 AM CDT [facility] POTASSIUM 3.5 3.5 - 5.3 mmol/L 05/30/2025 5:23 AM CDT [facility] CARBON DIOXIDE 36(H) 20 - 32 mmol/L 05/30/2025 5:23 AM CDT [facility] GLUCOSE 162(H) 65 - 99 mg/dL 05/30/2025 5:23 AM CDT [facility] Comment: Fasting reference interval For someone without known diabetes, a glucose value >125 mg/dL indicates that they may have diabetes and this should be confirmed with a follow-up test. CALCIUM 9.2 8.6 - 10.4 mg/dL 05/30/2025 5:23 AM CDT [facility] CREATININE 1.14(H) 0.60 - 1.00 mg/dL 05/30/2025 5:23 AM CDT [facility] BUN/CREATININE RATIO 25(H) 6 - 22 (calc) 05/30/2025 5:23 AM CDT [facility] EGFR 50(L) > OR = 60 mL/min/1. 73m2 05/30/2025 5:23 AM CDT [facility] UREA NITROGEN (BUN) 28(H) 7 - 25 mg/dL 05/30/2025 5:23 AM CDT [facility] ELECTROLYTE BALANCE 14 7 - 17 mmol/L (calc) 05/30/2025 5:23 AM CDT [facility] CHLORIDE 98 98 - 110 mmol/L 05/30/2025 5:23 AM CDT [facility] Blood BLOOD SPECIMEN / Unknown [facility] / Unknown 05/29/2025 10:24 AM CDT 05/29/2025 10:24 AM CDT us Nimisha Peterson DO CHEMISTRY Final Result [facility] [address] [place] [address], * CT CHEST ABDOMEN PELVIS W (05/27/2025 10:50 AM CDT) Anatomical Region Laterality Modality Abdomen, Pelvis, AORTA, LIVER, SPLEEN, CHEST Computed Tomography 05/28/2025 12:5 6 PM CDT Impressions 05/28/2025 12:56 PM CDT 1. No specific evidence for malignancy. 2. COPD. 3. 3 mm right upper lobe pulmonary nodule has been stable for 3 years and should be benign. Please note that all CT scans at this facility use dose modulation, iterative reconstruction, and/or weight-based dosing when appropriate to reduce radiation dose to as low as reasonably achievable. Dictated by Yovani Lawler MD @ 05/28/2025 12:56:05 PM (Electronically Signed) Narrative 05/28/2025 12:56 PM CDT For Patients: As a result of the Cures Act, medical imaging exams and procedure reports are released immediately into your electronic medical record. You may view this report before your referring provider. If you have questions, please contact your health care provider. 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 Please evaluate and r/o underlying malignancy. TECHNIQUE: CT chest, abdomen and pelvis acquired with 100 mL Omnipaque 350 IV contrast. COMPARISON: 07/20/[address] FINDINGS: CHEST: Cardiovascular structures: Heart size is normal. Thoracic aorta and main pulmonary artery are normal in caliber. Coronary artery calcification. Atherosclerosis in the proximal left subclavian artery. Mediastinum and joaquin: No mass or adenopathy. Lungs and pleura: Bronchial wall thickening and mosaic attenuation likely due to COPD. 3 mm nodule in the right upper lobe on image 20 of series 9, unchanged. Mild scarring in the right lung base. Chest wall and axilla: No mass or adenopathy. Bones: No suspicious bone lesions. Unremarkable for age. ABDOMEN AND PELVIS: Liver: Unremarkable. Gallbladder and bile ducts: Cholelithiasis. Pancreas: Unremarkable. Spleen: Unremarkable. Adrenal glands: Left adrenal adenoma is stable. Right adrenal gland normal. Kidneys: Unremarkable. GI tract: Sigmoid diverticulosis. No diverticulitis. Vascular structures: Atherosclerosis. Lymph nodes: Unremarkable. Miscellaneous: Unremarkable. No free air or significant free fluid. Pelvic Organs: Hysterectomy. Bones: No suspicious bone lesions. Unremarkable for age. Procedure Note Yovani Lawler MD - 05/28/2025 For Patients: As a result of the Century Cures Act, medical imagingexams and procedure reports are released immediately into your electronicmedical record. You may view this report before your referring provider.If you have questions, please contact your health care provider. INDICATION: Pt with seronegative necrotizing myopathy with concerns for underlyingmalignancy. Muscle biopsy includes paraneoplastic myopathy. Pleaseevaluate and r/o underlying malignancy. TECHNIQUE: CT chest, abdomen and pelvis acquired with 100 mL Omnipaque 350 IVcontrast. COMPARISON: 07/20/[address] FINDINGS: CHEST: Cardiovascular structures: Heart size is normal. Thoracic aorta and mainpulmonary artery are normal in caliber. Coronary artery calcification.Atherosclerosis in the proximal left subclavian artery. Mediastinum and joaquin: No mass or adenopathy. Lungs and pleura: Bronchial wall thickening and mosaic attenuation likelydue to COPD. 3 mm nodule in the right upper lobe on image 20 of series 9,unchanged. Mild scarring in the right lung base. Chest wall and axilla: No mass or adenopathy. Bones: No suspicious bone lesions. Unremarkable for age. ABDOMEN AND PELVIS: Liver: Unremarkable. Gallbladder and bile ducts: Cholelithiasis. Pancreas: Unremarkable. Spleen: Unremarkable. Adrenal glands: Left adrenal adenoma is stable. Right adrenal glandnormal. Kidneys: Unremarkable. GI tract: Sigmoid diverticulosis. No diverticulitis. Vascular structures: Atherosclerosis. Lymph nodes: Unremarkable. Miscellaneous: Unremarkable. No free air or significant free fluid. Pelvic Organs: Hysterectomy. Bones: No suspicious bone lesions. Unremarkable for age. IMPRESSION: 1. No specific evidence for malignancy. 2. COPD. 3. 3 mm right upper lobe pulmonary nodule has been stable for 3 years andshould be benign. Please note that all CT scans at this facility use dose modulation,iterative reconstruction, and/or weight-based dosing when appropriate toreduce radiation dose to as low as reasonably achievable. Dictated by Yovani Lawler MD @ 05/28/2025 12:56:05 PM (Electronically Signed) us Patricia Brown MD CT Fin al Result * THIOPURINE METHYLTRANSFERASE (05/23/2025 11:27 AM CDT) TPMT ACTIVITY 17 nmol/hr/mL RBC 05/31/2025 5:26 PM CDT [facility] Comment: Reference Range for TPMT Activity: >12 Normal 4-12 Heterozygote or low metabolizer <4 Homozygote Deficient Range This test was developed and its analytical performance characteristics have been determined by [employer]. It has not been cleared or approved by the FDA. This assay has been validated pursuant to the CLIA regulations and is used for clinical purposes. Blood BLOOD SPECIMEN / Unknown [facility] / Unknown 05/23/2025 11:27 AM CDT 05/23/2025 11:27 AM CDT Patricia Brown MD SEND OUTS Fin al Result Performing Organization Address City/[facility]/ZIP Co de Phone Number [facility] [address] [address], * ALDOLASE (05/23/2025 11:27 AM CDT) Only the most recent of3 resultswithin the time period is included. ALDOLASE 7.6 < OR = 8.1 U/L 05/24/2025 9:52 PM CDT [facility] Blood BLOOD SPECIMEN / Unknown [facility] / Unknown 05/23/2025 11:27 AM CDT 05/23/2025 11:27 AM CDT Patricia Brown MD SEND OUTS Fin al Result Performing Organization Address [facility] Co de Phone Number [facility] [address] [address], * (ABNORMAL) RED CELL MORPHOLOGY (05/20/2025 11:57 AM CDT) Only the most recent of2 resultswithin the time period is included. ELLIPTOCYTES Few 05/20/2025 3:41 PM CDT [facility]- NTRAL LABORATORY RBC COMMENT Present(A ) RBC morphology appears normal, RBC morphology within normal limits for newborns. 05/20/2025 3:41 PM CDT [facility] LAB[facility] Blood BLOOD SPECIMEN / Unknown [facility] / Unknown 05/20/2025 11:57 AM CDT 05/20/2025 11:57 AM CDT Nimisha Peterson DO HEMATOLOGY Final Result [facility] [address] [place] [address], * TSH WITH REFLEX (05/20/2025 11:57 AM CDT) TSH W/REFLEX TO FT4 0.99 0.40 - 4.50 mIU/L 05/24/2025 5:10 AM CDT [facility] Blood BLOOD SPECIMEN / Unknown [facility] / Unknown 05/20/2025 11:57 AM CDT 05/20/2025 11:57 AM CDT Nimisha Peterson DO CHEMISTRY Final Result [facility] [address] [address], * PERIPHERAL BLD MORPHOLOGY [20912.2] (05/20/2025 11:57 AM CDT) Case Report Special H[facility]ology Report Case: [id number] Authorizing Provider: Nimisha Peterson DO Collected: 05/20/2025 1157 Ordering Location: [facility] Received: 05/20/2025 1157 Clinic Pathologist: Shaun Jordan MD Specimen: Blood 05/21/2025 1:25 PM CDT [facility] ENTRAL LABORATORY Final Diagnosis PERIPHERAL BLOOD: 1. Macrocytic anemia 2. Absolute neutrophilia, favor reactive 3. Lymphocytopenia 05/21/2025 1:25 PM CDT [facility]-C ENTRAL LABORATORY at 1325 CDT Comment Macrocytic anemia may be associated with a variety of conditions, including Vitamin B12/folate deficiency, liver disease, hypothyroidism, alcohol use, sideroblastic anemia and certain medications. There are no definite myelodysplastic features in this sample. There are no morphologic features to suggest the etiology of the lymphocytopenia. Lymphocytopenia may be associated with infectious diseases, autoimmune disorders, drug effects, and protein energy malnutrition. There are no specific morphologic atypia. 05/21/2025 1:25 PM CDT [facility] LABORATORY-C ENTRAL LABORATORY Clinical Information 74-year-old with history of necrotizing myopathy of uncertain etiology, anemia, COPD. 05/21/2025 1:25 PM CDT [facility] LABOR[facility]-C ENTRAL LABORATORY CBC and Differential HEMATOLOGY PARAMETERS Tested at: Central Laboratory RESULTS EXPECTED VALUES WBC: 9.2 4.5-77f1345/cumm RBC: 3.45 4.00-5.20 mil/cummDECREASED HGB: 10.5 12-16 gm/dl DECREASED HCT: 35.7 33-51% MCV: 104.0 80-100 fl MACROCYTIC MCH: 30.4 26-34 pg MCHC: 29.4 32-36 gm/dl HYPOCHROMIC RDW: 13.4 11.5-15.5% PLT: 220 [id number]/uL MPV: 10.6 6.5-11 fl Retic: 4.0 0.5-1.5% ELEVATED Differential Tested at: Central Absolute (%) Expected (%) (x10*9/L) (x10*9/L) Neutrophils: 8.1 (88) 1.7-7.0 (42-72%) ELEVATED Lymphocytes: 0.7 (7.6) 0.9-2.9 (20-44%) DECREASED Monocytes: 0.2 (2.2) <0.9 (0-11%) Eosinophils: 0.0 (0) <0.5 (0-2%) Basophils: 0.0 (0) <0.3 (<3.0%) Imm Grans: 0.1 (1.1) <0.3 (0-3%) (Metas, Myelos,Pros) 05/21/2025 1:25 PM CDT [facility] ENTRFL LABORATORY Microscopic Description The final diagnosis is based on microscopic examination of appropriate sections of all specimens. 05/21/2025 1:25 PM CDT [facility] Additional Information Interpreted at [facility], Central Laboratory - [address] [facility] [address] [address] 05/21/2025 1:25 PM CDT [facility] Blood BLOOD SPECIMEN / Unknown [facility] / Unknown 05/20/2025 11:57 AM CDT 05/20/2025 11:57 AM CDT Comment:CURRENT MEDICATIONSC urrent Outpatient Medications: acetaminophen (TYLENOL) 325 mg tablet, Take 2 Tablets (650 mg) by mouth every 4 hours if needed for Pain. Max acetaminophen dose: 4000mg in 24 hrs., Disp: 120 Tablet, Rfl: 0 albuterol HFA (PRO-AIR; VENTOLIN; PROVENTIL) 90 mcg/actuation inhaler, INHALE 2 PUFFS BY MOUTH EVERY 4 HOURS NEEDED FOR SHORTNESS OF BREATH AND FOR WHEEZING, Disp: 6.7 g, Rfl: 3 azaTHIOprine (IMURAN) 50 mg tablet, Take 1 tablet daily for 2 weeks and then 1 tablet twice daily, Disp: 60 Tablet, Rfl: 3 cholecalciferol (VITAMIN D3) 1,000 unit capsule, Take 1,000 units by mouth once daily., Disp: , Rfl: clopidogreL (PLAVIX) 75 mg tablet, Take 1 Tablet (75 mg) by mouth once daily., Disp: 90 Tablet, Rfl: 3 famotidine (PEPCID) 40 mg tablet, Take 1 Tablet (40 mg) by mouth once daily., Disp: 90 Tablet, Rfl: 0 ibuprofen (ADVIL; MOTRIN) 200 mg tablet, Take 800 mg by mouth 4 times daily if needed., Disp: , Rfl: lisinopriL (PRINIVIL; ZESTRIL) 30 mg tablet, Take 1 Tablet (30 mg) by mouth once daily., Disp: 90 Tablet, Rfl: 3 metoprolol tartrate (LOPRESSOR) 25 mg tablet, Take 1 Tablet (25 mg) by mouth two times daily., Disp: 180 Tablet, Rfl: 0 nitroglycerin (NITROSTAT) 0.4 mg sublingual tablet, Place 1 Tablet (0.4 mg) under the tongue every 5 minutes if needed for Chest Pain., Disp: 30 Tablet, Rfl: 1 predniSONE (DELTASONE) 20 mg tablet, Take 3 Tablets (60 mg) by mouth once daily with a meal for 7 days, THEN 2.5 Tablets (50 mg) once daily with a meal for 7 days, THEN 2 Tablets (40 mg) once daily with a meal for 7 days, THEN 1.5 Tablets (30 mg) once daily with a meal for 7 days, THEN 1 Tablet (20 mg) once daily with a meal for 7 days., Disp: 70 Tablet, Rfl: 0 sennosides-docusate (SENOKOT S) (8.6-50 mg) tablet, Take 1 Tablet by mouth 2 times daily if needed for Constipation., Disp: 20 Tablet, Rfl: 0 trimethoprim-sulfamethoxazole 80-400 mg tab, Take 1 Tablet by mouth once daily., Disp: 60 Tablet, Rfl: 0 [employer] [facility] HEMATOLOGY Final Result Performing Organization Address [facility] de Phone Number [facility] [address] [address], [place] * (ABNORMAL) RETICULOCYTES [57887.0] (05/20/2025 11:57 AM CDT) RETIC% 4.0(H) 0.5 - 1.5 % 05/20/2025 3:41 PM CDT [employer] [facility] RETIC (ABSOLUTE) 0.14(H) 0.03 - 0.08 mil/cu mm 05/20/2025 3:41 PM CDT [facility] Blood BLOOD SPECIMEN / Unknown [facility] / Unknown 05/20/2025 11:57 AM CDT 05/20/2025 11:57 AM CDT [employer] [facility] HEMATOLOGY Final Result Performing Organization Address [facility] Co de Phone Number [facility] [address] [place] [address], [place] * VITAMIN B12 (05/20/2025 11:57 AM CDT) VITAMIN B12 820 200 - 1100 pg/mL 05/24/2025 3:10 AM CDT [facility] Blood BLOOD SPECIMEN / Unknown [facility] / Unknown 05/20/2025 11:57 AM CDT 05/20/2025 11:57 AM CDT Nimisha Nayana Walteranusha CHEMISTRY Final Result [facility] [address] [place] [address], * RAPID HIV SCREEN (05/09/2025 4:30 PM CDT) [facility] RAPID HIV SCREEN Non-React tasneem Non-Reactiv e, Invalid 05/09/2025 6:06 PM CDT [facility] Comment:A NONREACTIVE test r esult means that HIV-1 or HIV-2 antibodies and HIV-1 p24 antigen were not detected in the specimen. Blood BLOOD SPECIMEN / Unknown Client Collect / Unknown 05/09/2025 4:30 PM CDT 05/09/2025 5:40 PM CDT Hardy Crum MD CHEMISTRY Final Result Performing Organization Address [facility] Co de Phone Number [facility] [address] [place] [id number] * SEDIMENTATION RATE (05/01/2025 7:05 AM CDT) Only the most recent of3 resultswithin the time period is included. [facility] SEDIMENTATION RATE 15 <30 mm/hr 2024 8:44 AM CDT [facility] Blood BLOOD SPECIMEN / Unknown Venipuncture / Unknown 05/01/2025 7:05 AM CDT 05/01/2025 8:19 AM CDT Doctor Unknown HEMATOLOGY Final Result [facility] [address] [place] [address] * PLATELET ESTIMATE (05/01/2025 7:05 AM CDT) Pathologist [facility] PLATELET ESTIMATE Adequate Adequate, No estimate 05/01/2025 9:40 AM [facility] Blood BLOOD SPECIMEN / Unknown Venipuncture / Unknown 05/01/2025 7:05 AM CDT 05/01/2025 8:19 AM CDT us Doctor Unknown HEMATOLOGY Final Result [facility] [address] [place] [address] * (ABNORMAL) MANUAL DIFFERENTIAL (05/01/2025 7:05 AM CDT) [facility] % NEUTROPHILS 75.0 % 05/01/2025 9:40 AM [facility] % LYMPHOCYTES 20.0 % 05/01/2025 9:40 AM [facility] % MONOCYTES 3.0 % 05/01/2025 9:40 AM [facility] % EOSINOPHILS 1.0 % 05/01/2025 9:40 AM [facility] % BASOPHILS 0.0 % 05/01/2025 9:40 AM [facility] % MYELOCYTES 1.0(H) <0.1 % 05/01/2025 9:40 AM [facility] NEUTROPHILS ABSOLUTE 7.8(H) 1.7 - 7.0 thou/cu mm 05/01/2025 9:40 AM [facility] LYMPHOCYTES ABSOLUTE 2.1 0.9 - 2.9 thou/cu mm 05/01/2025 9:40 AM [facility] MONOCYTES ABSOLUTE 0.3 <0.9 thou/cu mm 05/01/2025 9:40 AM [facility] EOSINOPHILS ABSOLUTE 0.1 <0.5 thou/cu mm 05/01/2025 9:40 AM [facility] BASOPHILS ABSOLUTE 0.0 <0.3 thou/cu mm 05/01/2025 9:40 AM CDT [facility] ABSOLUTE MYELOCYTES 0.1(H) <=0.0 thou/cu mm 05/01/2025 9:40 AM CDT [facility] Blood BLOOD SPECIMEN / Unknown Venipuncture / Unknown 05/01/2025 7:05 AM CDT 05/01/2025 8:19 AM CDT us Doctor Unknown HEMATOLOGY Final Result [facility] [address] [place] [address] * C-REACTIVE PROTEIN (05/01/2025 7:05 AM CDT) Only the most recent of3 resultswithin the time period is included. C-REACTIVE PROTEIN 0.4 <0.5 mg/dL 05/01/2025 8:48 AM CDT [facility] Blood BLOOD SPECIMEN / Unknown Venipuncture / Unknown 05/01/2025 7:05 AM CDT 05/01/2025 8:19 AM CDT us Doctor Unknown CHEMISTRY Final Result [facility] [address] [place] [address] * PATH TISSUE EXAM (04/19/2025 8:06 AM CDT) Case Report Pathology Report Case: [id number] Authorizing Provider: Sondra Rodriguez Collected: 04/19/2025 0806 MD Brigida Ordering Location: [facility] Received: 04/19/2025 0833 [facility] Pathologist: Hanane Platt MD Specimens: A) - Muscle Biopsy, right quad muscle biopsy to [facility] B) - Muscle Biopsy, right quad muscle biopsy to [facility] 05/03/2025 2:59 PM CDT [facility] [employer] LABORATORY-C ENTRAL LABORATORY Amendment This amendment was ordered to include the [facility] results. See scanned document. 05/03/2025 2:59 PM CDT [facility] LABORATORY-C ENTRAL LABORATORY Final Diagnosis A-B) RIGHT DELTOID MUSCLE, BIOPSY: Please see scanned [facility] report for the muscle pathology diagnosis 05/03/2025 2:59 PM CDT [facility] LABORATORY-C ENTRAL LABORATORY Amendment electronically signed by Hanane Platt MD on 05/03/2025 at 1459 CDT at 1500 CDT Comment This case is sent to Dr. Dionisio Foreman at [facility] for evaluation. The [facility] report ([id number]) is scanned. 05/03/2025 2:59 PM CDT [facility] LABORATORY-C ENTRAL LABORATORY Clinical Information Weakness 05/03/2025 2:59 PM CDT [facility] LABORATORY-C ENTRAL LABORATORY Gross Description A) Received fresh, labeled with the patient's name and muscle biopsy, right quad muscle biopsy to [facility], are two 3.4 x 1.7 x 0.4 cm and 1.8 x 1.4 x 0.4 cm portions of red muscle with focal white fibrous tissue attached, on a saline soaked gauze attached to two tongue depressors. The specimen is entirely forwarded to [facility] for further morphologic evaluation. B)Received in glutaraldehyde, labeled with the patient's name and muscle biopsy, right quad muscle biopsy to [facility], is a tongue depressor that contains a 2.8 x 1.3 x 0.3 cm portion of red muscle that is bound to it by suture. The specimen is entirely forwarded to [facility] for further morphologic evaluation. PAD 04/19/2025 05/03/2025 2:59 PM CDT [facility] LABORATORY-C ENTRAL LABORATORY Microscopic Description No sections are submitted; the results will be reported in the final report 05/03/2025 2:59 PM CDT [facility] LABORATORY-C ENTRAL LABORATORY Additional Information [facility] at [facility] - [address] [facility] [address] [address] 05/03/2025 2:59 PM CDT [employer]-C ENTRAL LABORATORY Biopsy (Muscle Biopsy) 04/19/2025 8:06 AM CDT 04/19/2025 8:33 AM CDT Biopsy specimen (specimen) (Muscle Biopsy) 04/19/2025 8:07 AM CDT 04/19/2025 8:33 AM CDT Sondra Rodriguez MD PATHOLOGY/CYTOLOGY Edited Result - Final [facility] LABORATORY [address] [place] [address], [place] * HCHG MASK PR5 (04/19/2025 7:50 AM CDT) Narrative Alfredo Costa CRNA - 04/19/2025 7:50 AM CDT Alfredo Costa CRNA 04/19/2025 7:50 AM Procedure: Supraglottic Patient location during procedure: OR Supraglottic Airway Properties Mask Ventilation: not attempted Type: unique Tube Size: 4 Insertion Attempts: 1 Placement Verification: CO2 detection Assessment Assessment: atraumatic Alfredo Costa CRNA ANESTHESIA PX NOTE ORDERA BLES Final Result * (ABNORMAL) Creatinine TODAY (04/18/2025 11:15 AM CDT) Only the most recent of2 resultswithin the time period is included. eGFR 44(L) >90 mL/min/1.7 3m2 04/18/2025 11:54 AM CDT [employer] TRAL LABORATORY Comment:As of 2021, eG FR is calculated by the CKD-EPI creatinine equation without race adjustment. eGFR can be influenced by muscle mass, exercise, and diet. The reported eGFR is an estimation only and is only applicable if the renal function is stable. CREATININE 1.27(H) 0.50 - 0.90 mg/dL 04/18/2025 11:54 AM CDT [employer] [facility] LABORAT[facility] Blood BLOOD SPECIMEN / Unknown Butterfly / Unknown 04/18/2025 11:15 AM CDT 04/18/2025 11:22 AM CDT us Shaun Reyes MD CHEMISTRY Final Re sult [facility] LABORATORY-CENTRAL LABORATORY [address] [address], [place] * MR SPINE CERVICAL WO CONTRAST (04/17/2025 8:32 PM CDT) Anatomical Region Laterality Modality Spine, CERVICAL SPINE Magnetic R esonance 04/17/2025 8:40 PM CDT Impressions 04/17/2025 8:40 PM CDT 1. Normal alignment. No fractures 2. Normal cord signal 3. Cervical spondylosis 4. At C3-4, moderate narrowing of the bilateral neural foramina 5. At C5-6, moderate to severe narrowing of the spinal canal. Moderate narrowing of the bilateral neural foramina 6. At C6-7, moderate narrowing of the bilateral neural foramina Dictated by Emeterio Gonzales MD @ 04/17/2025 8:40:32 PM (Electronically Signed) Narrative 04/17/2025 8:40 PM CDT For Patients: As a result of the Cures Act, medical imaging exams and procedure reports are released immediately into your electronic medical record. You may view this report before your referring provider. If you have questions, please contact your health care provider. INDICATION: Chronic myelopathy. COMPARISON: 04/16/2025. TECHNIQUE: Sagittal T1, T2, and STIR sequences. Axial T2/gradient sequences. FINDINGS: Normal vertebral body facet alignment. No fractures. No vertebral body loss of height. No spondylolisthesis. No ligamentous injury. No suspicious osseous lesions. Normal cord signal. No intradural mass or lesion. Cervical spondylosis. Multilevel disc degeneration facet arthropathy. C1-2: No spinal canal narrowing. C2-3: Disc degeneration posterior disc bulge. No spinal canal neural foraminal narrowing. C3-4: Disc generation posted disc bulged disc osteophyte complex. Mild narrowing of spinal canal. Moderate narrowing of bilateral foramina. C4-5: Disc degeneration posted disc bulging disc osteophyte complex. Mild narrowing of the spinal canal. Mild right and moderate left neural foraminal narrowing. C5-6: Disc degeneration broad-based disc osteophyte complex. Allowing for motion artifact, there is moderate severe narrowing of spinal canal. Moderate narrowing of bilateral foramina. C6-7: Disc generation broad-based disc osteophyte complex. Mild narrowing of spinal canal. Moderate narrowing of bilateral foramina. C7-T1: No spinal canal neural foraminal narrowing. No spinal canal or neural foraminal narrowing in the visualized upper thoracic spine. Procedure Note Emeterio Gonzales MD, PhD - 04/17/2025 For Patients: As a result of the Cures Act, medical imagingexams and procedure reports are released immediately into your electronicmedical record. You may view this report before your referring provider.If you have questions, please contact your health care provider. INDICATION: Chronic myelopathy. COMPARISON: 04/16/2025. TECHNIQUE: Sagittal T1, T2, and STIR sequences. Axial T2/gradient sequences. FINDINGS: Normal vertebral body facet alignment. No fractures. No vertebral bodyloss of height. No spondylolisthesis. No ligamentous injury. No suspiciousosseous lesions. Normal cord signal. No intradural mass or lesion. Cervical spondylosis. Multilevel disc degeneration facet arthropathy. C1-2: No spinal canal narrowing. C2-3: Disc degeneration posterior disc bulge. No spinal canal neuralforaminal narrowing. C3-4: Disc generation posted disc bulged disc osteophyte complex. Mildnarrowing of spinal canal. Moderate narrowing of bilateral foramina. C4-5: Disc degeneration posted disc bulging disc osteophyte complex. Mildnarrowing of the spinal canal. Mild right and moderate left neuralforaminal narrowing. C5-6: Disc degeneration broad-based disc osteophyte complex. Allowing formotion artifact, there is moderate severe narrowing of spinal canal.Moderate narrowing of bilateral foramina. C6-7: Disc generation broad-based disc osteophyte complex. Mild narrowingof spinal canal. Moderate narrowing of bilateral foramina. C7-T1: No spinal canal neural foraminal narrowing. No spinal canal or neural foraminal narrowing in the visualized upperthoracic spine. IMPRESSION: 1. Normal alignment. No fractures 2. Normal cord signal 3. Cervical spondylosis 4. At C3-4, moderate narrowing of the bilateral neural foramina 5. At C5-6, moderate to severe narrowing of the spinal canal. Moderatenarrowing of the bilateral neural foramina 6. At C6-7, moderate narrowing of the bilateral neural foramina Dictated by Emeterio Gonzales MD @ 04/17/2025 8:40:32 PM (Electronically Signed) us Sean Deluna DO MR Final Re sult * MR FEMUR RIGHT WO (04/17/2025 8:31 PM CDT) Anatomical Region Laterality Modality FEMUR R, LEG R Magnetic Resonan ce 04/17/2025 8:49 PM CDT Impressions 04/17/2025 8:49 PM CDT 1. Prominent diffuse muscular edema throughout the field of view. 2. Trace right greater than left thigh perifascial edema. Mild diffuse subcutaneous edema. Dictated by Arslan Louise MD @ 04/17/2025 8:49:36 PM (Electronically Signed) Narrative 04/17/2025 8:49 PM CDT For Patients: As a result of the Cures Act, medical imaging exams and procedure reports are released immediately into your electronic medical record. You may view this report before your referring provider. If you have questions, please contact your health care provider. CLINICAL INDICATION: elevated CK to 4000s on recent admission and current admission, CK improves with high dose steroids however more weakness with tapering prednisone. myositis panel negative. Pt feels heaviness in legs. eval for atypical myositis/myopathy COMPARISON IMAGING STUDIES: None. TECHNICAL: Non contrast MRI of the right femur. Coronal and axial noncontrast images of the left femur were also obtained. 3 pushpa MRI scanner. FINDINGS: OSSEOUS STRUCTURES: Normal marrow signal. No acute fracture. MUSCULAR STRUCTURES: Prominent diffuse muscular edema throughout the field of view including in the anterior compartment of the thigh, posterior compartment of the thigh, and adductor compartment of the thigh bilaterally. There is minimal to mild fatty infiltration/atrophy of the thigh musculature which may be commensurate with patient age. SOFT TISSUES: Mild diffuse subcutaneous edema. Trace right greater than left perifascial edema in the thigh such as within the adductor compartment and anterior compartment on series 18, image 20. Procedure Note Arslan Louise MD - 04/17/2025 For Patients: As a result of the Cures Act, medical imagingexams and procedure reports are released immediately into your electronicmedical record. You may view this report before your referring provider.If you have questions, please contact your health care provider. CLINICAL INDICATION: elevated CK to 4000s on recent admission and current admission, CKimproves with high dose steroids however more weakness with taperingprednisone. myositis panel negative. Pt feels heaviness in legs. eval foratypical myositis/myopathy COMPARISON IMAGING STUDIES: None. TECHNICAL: Non contrast MRI of the right femur. Coronal and axial noncontrast imagesof the left femur were also obtained. 3 pushpa MRI scanner. FINDINGS: OSSEOUS STRUCTURES: Normal marrow signal. No acute fracture. MUSCULAR STRUCTURES: Prominent diffuse muscular edema throughout the field of view including inthe anterior compartment of the thigh, posterior compartment of the thigh,and adductor compartment of the thigh bilaterally. There is minimal tomild fatty infiltration/atrophy of the thigh musculature which may becommensurate with patient age. SOFT TISSUES: Mild diffuse subcutaneous edema. Trace right greater than left perifascialedema in the thigh such as within the adductor compartment and anteriorcompartment on series 18, image 20. IMPRESSION: 1. Prominent diffuse muscular edema throughout the field of view. 2. Trace right greater than left thigh perifascial edema. Mild diffusesubcutaneous edema. Dictated by Arslan Louise MD @ 04/17/2025 8:49:36 PM (Electronically Signed) Irena Baldwin MD MR Final Result * QFT MITOGEN PERFORMABLE (04/17/2025 6:50 AM CDT) MITOGEN 1.38 IU/mL 04/18/2025 11:59 AM CDT [facility] AL LABORATORY Blood BLOOD SPECIMEN / Unknown Butterfly / Unknown 04/17/2025 6:50 AM CDT 04/17/2025 6:56 AM CDT Irena Baldwin MD CHEMISTRY Final Result [facility]-CENTRAL LABORATORY [address] [place] [address], [place] * QFT TB2 PERFORMABLE (04/17/2025 6:50 AM CDT) TB2 0.17 IU/mL 04/18/2025 10:06 AM CDT [facility] AL LABORATORY Blood BLOOD SPECIMEN / Unknown Butterfly / Unknown 04/17/2025 6:50 AM CDT 04/17/2025 6:56 AM CDT Irena Baldwin MD CHEMISTRY Final Result [facility] LABORATORY [address] [place] [address], [place] * QFT TB1 PERFORMABLE (04/17/2025 6:50 AM CDT) TB1 0.15 IU/mL 04/18/2025 10:06 AM CDT [facility] LABORATORY Blood BLOOD SPECIMEN / Unknown Butterfly / Unknown 04/17/2025 6:50 AM CDT 04/17/2025 6:56 AM CDT Irena Baldwin MD CHEMISTRY Final Result [facility] LABORATORY [address] [place] [address], [place] * QUANTIFERON TB GOLD PLUS (04/17/2025 6:50 AM CDT) QFTP NIL 0.14 04/18/2025 12:19 PM CDT [facility] TB1 0.15 IU/mL 04/18/2025 12:19 PM CDT [facility] TB2 0.17 IU/mL 04/18/2025 12:19 PM CDT [facility] NTRAL LABORATORY MITOGEN 1.38 IU/mL 04/18/2025 12:19 PM CDT [facility] NTRAL LABORATORY QFTP TB AG1 - NIL 0.01 025 12:19 PM CDT [facility] LABORATORY TB1-NIL % OF NIL 7 % 04/18/20 25 12:19 PM CDT [facility] LABORATORY QFTP TB AG2 - NIL 0.03 025 12:19 PM CDT [facility] LABORATORY TB2-NIL % OF NIL 21 % 04/18/20 25 12:19 PM CDT [facility] LABORATORY QFTP MITOGEN - NIL 1.24 2024 12:19 PM CDT [facility] LABORATORY QFTP QUANTIFERON INTERPRETATION Negative Negative 04/18/2025 12:19 PM CDT [facility] LABORATORY Blood BLOOD SPECIMEN / Unknown Butterfly / Unknown 04/17/2025 6:50 AM CDT 04/17/2025 6:56 AM CDT [facility] LABORATORY - 04/18/2025 12:19 PM CDT M. tuberculosis infection not likely, but cannot be excluded in cases of immunosuppression. CAUTION: The performance of QuantiFERON-TB Gold Plus has not been evaluated in specimens from: - Individuals with impaired or altered immune factors (HIV infections, transplant patients, those receieving immunosuppressive drugs such as corticosteroids) and those with other clinical conditions (e.g., diabetes, hematological disorders). - Individuals younger than 17 years old. Refer to CDC website for testing recommendations in children 6-17 years old. - women Irena Baldwin MD CHEMISTRY Final Result [facility] LABORATORY [address] [place] [address], * (ABNORMAL) ANGIOTENSIN CONVERTING ENZYME (04/17/2025 6:50 AM CDT) MARK <5(L) 14 - 82 U/L 04/19/2025 6:08 AM CDT [facility] Comment:Results verified b y repeat testing Blood BLOOD SPECIMEN / Unknown Butterfly / Unknown 04/17/2025 6:50 AM CDT 04/17/2025 6:58 AM CDT Narrative [facility] ([facility]) - 04/19/2025 6:08 AM CDT Performed at: [address] [place] [id number] Customer Success Intern: Bakari Montoya MD, Phone: [phone] Irena Baldwin MD SEND OUTS Final Result Performing Organization Address City/[facility] Co de Phone Number [facility] ([facility]) [address] [place] [id number], [place] * (ABNORMAL) IMMUNOGLOBULINS,IGG/A/M (04/17/2025 6:50 AM CDT) Pathologist [facility] IGM 51.73 35.00 - 242.00 mg/dL 04/17/2025 10:31 AM CDT [facility] LABORAT[facility] IGA 138.25 84.50 - 499.00 mg/dL 04/17/2025 10:31 AM CDT [facility] LABORAT[facility] IGG 398.75(L) 610.30 - 1,616.00 mg/dL 04/17/2025 10:31 AM CDT [facility] LABORATORY Blood BLOOD SPECIMEN / Unknown Butterfly / Unknown 04/17/2025 6:50 AM CDT 04/17/2025 6:58 AM CDT Irena Baldwin MD CHEMISTRY Final Result [facility] LABORATORY [address] [place] [address], [place] * (ABNORMAL) LD,TOTAL (04/17/2025 6:50 AM CDT) LD,TOTAL 738(H) 135 - 214 IU/L 04/17/2025 7:58 AM CDT [facility] LABORATORY Blood BLOOD SPECIMEN / Unknown Butterfly / Unknown 04/17/2025 6:50 AM CDT 04/17/2025 6:58 AM CDT Irena Baldwin MD CHEMISTRY Final Result [facility] LABORATORY [address] [address], * (ABNORMAL) PROTEIN ELP,SERUM (04/17/2025 6:50 AM CDT) ELP,ALBUMIN 2.49(L) 3.31 - 5.31 g/dL 04/18/2025 2:04 PM CDT [facility] ELP,ALPHA 1 0.41 0.19 - 0.42 g/dL 04/18/2025 2:04 PM CDT [facility] ELP,ALPHA 2 1.17(H) 0.44 - 1.03 g/dL 04/18/2025 2:04 PM CDT [facility] ELP,GAMMA 0.40(L) 0.59 - 1.46 g/dL 04/18/2025 2:04 PM CDT [facility] ELP,BETA 0.63 0.52 - 1.05 g/dL 04/18/2025 2:04 PM CDT [facility] ELP INTERP,SERUM Moderate hypoproteinemia and moderate hypoalbuminemia with elevated alpha-globulins, which may be seen in nephrosis, malnutrition, malabsorption, and chronic disease. Severe hypogammaglobulinemia can be seen in immunodeficiency states, protein-losing enteropathy, advanced age, or light chain disease. Recommend quantitative immunoglobulins, if clinically indicated. Immunofixation could be performed on the current specimen if testing is ordered as an add-on within 14 days of the date of collection. No monoclonal protein detected. Interpreted and electronically signed by: Dolores Mccormack MD 04/18/2025 2:04 PM CDT [facility] PROTEIN,TOTA L 5.1(L) 6.0 - 8.0 g/dL 04/18/2025 2:04 PM CDT [facility] LABORATORY Blood BLOOD SPECIMEN / Unknown Butterfly / Unknown 04/17/2025 6:50 AM CDT 04/17/2025 6:58 AM CDT Irena Baldwin MD CHEMISTRY Final Result [facility] LABORATORY-CENTRAL LABORATORY [address] [address], [place] * XR SPINE CERVICAL 3 VIEWS (04/16/2025 7:41 PM CDT) Anatomical Region Laterality Modality CERVICAL SPINE Digital Radiogra phy 04/16/2025 8:19 PM CDT Impressions 04/16/2025 8:19 PM CDT 1. No acute bony abnormality of the cervical spine. 2. Nfmm-zw-hggvcpqo cervical spondylosis at C5-6 and C6-7. Dictated by Sukh Coker MD @ 04/16/2025 8:19:29 PM (Electronically Signed) Narrative 04/16/2025 8:19 PM CDT For Patients: As a result of the Cures Act, medical imaging exams and procedure reports are released immediately into your electronic medical record. You may view this report before your referring provider. If you have questions, please contact your health care provider. INDICATION: Pain. TECHNIQUE: Cervical spine 3 view. COMPARISON: None. FINDINGS: Straightening of the cervical lordosis. Rlqv-ft-dhthsdnw intervertebral disc height loss at C5-6 and C6-7 with marginal osteophyte formation. The C7-T1 level is not well visualized. No acute fracture or traumatic subluxation. No aggressive osseous lesion. No prevertebral soft tissue swelling. Mild multilevel facet arthrosis. The lung apices are unremarkable. Procedure Note Sukh Coker MD - 04/16/2025 For Patients: As a result of the Cures Act, medical imagingexams and procedure reports are released immediately into your electronicmedical record. You may view this report before your referring provider.If you have questions, please contact your health care provider. INDICATION: Pain. TECHNIQUE: Cervical spine 3 view. COMPARISON: None. FINDINGS: Straightening of the cervical lordosis. Ivep-fv-pbtuewya intervertebraldisc height loss at C5-6 and C6-7 with marginal osteophyte formation. TheC7-T1 level is not well visualized. No acute fracture or traumaticsubluxation. No aggressive osseous lesion. No prevertebral soft tissueswelling. Mild multilevel facet arthrosis. The lung apices areunremarkable. IMPRESSION: 1. No acute bony abnormality of the cervical spine. 2. Jcog-fz-nyuuvqgc cervical spondylosis at C5-6 and C6-7. Dictated by Sukh Coker MD @ 04/16/2025 8:19:29 PM (Electronically Signed) Sean Deluna DO GENERAL IMAGING Final Re sult * TSH (04/16/2025 5:04 AM CDT) TSH 2.22 0.27 - 4.20 uIU/mL 04/16/2025 11:21 PM CDT [facility] LABORATORY Blood BLOOD SPECIMEN / Unknown Venipuncture / Unknown 04/16/2025 5:04 AM CDT 04/16/2025 5:31 AM CDT [facility] LABORATORY - 04/16/2025 11:21 PM CDT In Adults, TSH values between 5.00 and 10.00 uIU/ml do not necessarily indicate the presence of Hypothyroidism. Correlation with clinical findings such as presence of goiter and/or Thyroperoxidase (TPO) Antibody may be helpful. For more information please refer to DEBORAH 2004; 291: 228-238. Irena Baldwin MD CHEMISTRY Final Result [facility] LABORATORY [address] [address], * (ABNORMAL) ALT (SGPT) (04/16/2025 5:04 AM CDT) ALT (SGPT) 238(H) 10 - 35 IU/L 04/16/2025 6:00 AM CDT [facility] LABORATORY Blood BLOOD SPECIMEN / Unknown Venipuncture / Unknown 04/16/2025 5:04 AM CDT 04/16/2025 5:31 AM CDT Alicia Cardenas MD CHEMISTRY Final Res ult Performing Organization Address City/[facility]/ZIP Co de Phone Number [facility] LABORATORY [address] [place] [id number], [place] * (ABNORMAL) AST (SGOT) (04/16/2025 5:04 AM CDT) AST (SGOT) 257(H) 10 - 35 IU/L 04/16/2025 6:00 AM CDT [facility] LABORATORY Blood BLOOD SPECIMEN / Unknown Venipuncture / Unknown 04/16/2025 5:04 AM CDT 04/16/2025 5:31 AM CDT Alicia Cardenas MD CHEMISTRY Final Res ult Performing Organization Address [facility] Co de Phone Number [facility] LABORATORY [address] [place] [address], [place] * ACUTE HEPATITIS PANEL (04/16/2025 5:04 AM CDT) HEPATITIS C ANTIBODY Non-Reactive Non-Reactive 04/17/2025 1:29 AM CDT [facility] LABORATORY Comment:Please note, per www .CDC.gov: If a patient is known to be at high risk of HCV infection, or is symptomatic, and the physician's suspicion of HCV infection is high, HCV RNA testing is often employed and is of diagnostic value, even after an initial negative anti-HCV test result. IGM ANTI HAV Non-Reactive Non-Reactive 04/17/20 1:29 AM CDT [facility]FL LABORATORY Comment:Anti-HAV IgM non-toribio ctive. Does not exclude the possibility of exposure to/or infection with HAV. Level of anti-HAV IgM may be below the cut-off in early infection. HBSAG Nonreactive Nonreactive 04/17/2025 1:29 AM CDT [facility] LABORATORY IGM ANTI HBC Non-Reactive Non-Reactive 04/17/20 1:29 AM CDT [facility] LABORATORY Comment:Anti-HBc IgM not det ected. Does not exclude the possibility of exposure to or infection with HBV. Blood BLOOD SPECIMEN / Unknown Venipuncture / Unknown 04/16/2025 5:04 AM CDT 04/16/2025 5:31 AM CDT Narrative [facility]-C[facility]AL LABORATORY - 04/17/2025 1:29 AM CDT Biotin supplements may cause clinically significant interference for this test assay. If interference is suspected, it is strongly recommended that biotin is discontinued for at least one week prior to retesting. us Irena Baldwin MD SEND OUTS Final Result [facility] LABORATORY [address] [address], [place] * MR HEAD BRAIN WWO (04/15/2025 2:28 PM CDT) Anatomical Region Laterality Modality BRAIN, HEAD Magnetic Resonan ce 04/15/2025 2:42 PM CDT Impressions 04/15/2025 2:42 PM CDT 1. No acute infarction or other acute intracranial pathology. 2. No mass or pathologic intracranial enhancement. 3. Mild chronic microvascular ischemic changes and moderate generalized parenchymal volume loss. Dictated by Wiliam Bass MD @ 04/15/2025 2:42:09 PM (Electronically Signed) Narrative 04/15/2025 2:42 PM CDT For Patients: As a result of the Century Cures Act, medical imaging exams and procedure reports are released immediately into your electronic medical record. You may view this report before your referring provider. If you have questions, please contact your health care provider. INDICATION: Arm/leg weakness. TECHNIQUE: Brain MRI with and without contrast. 20 cc of Dotarem gadolinium based intravenous contrast administered. COMPARISON: None. FINDINGS: No evidence of acute ischemia. No evidence of acute or chronic intracranial blood products. No mass or pathologic intracranial enhancement. Scattered FLAIR hyperintensities within the supratentorial white matter and brainstem, typical for chronic microvascular ischemic change. Moderate generalized parenchymal volume loss. No hydrocephalus or extra-axial collections. The pituitary gland, parasellar structures and optic chiasm are normal. Posterior fossa is normal. All the major intracranial vascular structures demonstrate normal flow-related signal. The orbital contents are normal. No calvarial or skull base marrow signal abnormality. No obstructive sinus disease. No extracranial soft tissue findings. Procedure Note Wiliam Bass MD - 04/15/2025 For Patients: As a result of the Cures Act, medical imagingexams and procedure reports are released immediately into your electronicmedical record. You may view this report before your referring provider.If you have questions, please contact your health care provider. INDICATION: Arm/leg weakness. TECHNIQUE: Brain MRI with and without contrast. 20 cc of Dotarem gadolinium basedintravenous contrast administered. COMPARISON: None. FINDINGS: No evidence of acute ischemia. No evidence of acute or chronicintracranial blood products. No mass or pathologic intracranialenhancement. Scattered FLAIR hyperintensities within the supratentorialwhite matter and brainstem, typical for chronic microvascular ischemicchange. Moderate generalized parenchymal volume loss. No hydrocephalus orextra-axial collections. The pituitary gland, parasellar structures andoptic chiasm are normal. Posterior fossa is normal. All the majorintracranial vascular structures demonstrate normal flow-related signal. The orbital contents are normal. No calvarial or skull base marrow signalabnormality. No obstructive sinus disease. No extracranial soft tissuefindings. IMPRESSION: 1. No acute infarction or other acute intracranial pathology. 2. No mass or pathologic intracranial enhancement. 3. Mild chronic microvascular ischemic changes and moderate generalizedparenchymal volume loss. Dictated by Wiliam Bass MD @ 04/15/2025 2:42:09 PM (Electronically Signed) Zuri ROLLINS MR Final Result * (ABNORMAL) HEPATIC FUNCTION PANEL (04/15/2025 12:15 PM CDT) ALBUMIN 3.4(L) 4.0 - 4.9 g/dL 04/15/2025 1:39 PM CDT [facility] PROTEIN,TOTAL 6.1 6.0 - 8.0 g/dL 04/15/2025 1:39 PM CDT [facility] BILIRUBIN,TOTAL 0.3 0.0 - 1.2 mg/dL 04/15/2025 1:39 PM CDT [facility] BILIRUBIN,DIRECT 0.2 0.0 - 0.2 mg/dL 04/15/2025 1:39 PM CDT [facility] BILIRUBIN,INDIRE CT 0.1(L) 0.2 - 0.8 mg/dL 04/15/2025 1:39 PM CDT [facility] ALK PHOSPHATASE 67 35 - 104 IU/L 04/15/2025 1:39 PM CDT [facility] ALT (SGPT) 255(H) 10 - 35 IU/L 04/15/2025 1:39 PM CDT [facility] AST (SGOT) 296(H) 10 - 35 IU/L 04/15/2025 1:39 PM CDT [facility] Blood BLOOD SPECIMEN / Unknown Venipuncture / Unknown 04/15/2025 12:15 PM CDT 04/15/2025 12:19 PM CDT us Zuri ROLLINS CHEMISTRY Final Result [facility] [address] [place] [address] * SCAN-CARDIAC STRIP (04/15/2025 12:00 AM CDT) Narrative 04/15/2025 12:00 AM CDT Ordered by an unspecified provider. us Other Clinical Staff OTHER Final Resul t * SCAN-MRI INTERPRETATION (04/09/2025 12:00 AM CDT) Only the most recent of2 resultswithin the time period is included. Anatomical Region Laterality Modality Other us Scanner OTHER Final Result from Last 3 Months Insurance MEDICARE PART A HB ONLY [employer] MR PB ONLY [employer] HB MEDICARE PART B HB ONLY * Guarantor: RAMILA LUCIANO Account Type Relation to Patient Date of Phone Billing Address Personal/Family [id number] [place] [id number] Advance Directives * Full Code (Latest Code Status on File) Date Activated Date Inactivated Comments 04/15/2025 11:31 PM 04/19/2025 5:51 PM Question Answer Comments Code Status Discussion: Reviewed Preferences * Full Code Date Activated Date Inactivated Comments 07/15/2021 3:32 AM 07/16/2021 4:47 PM Question Answer Comments Code Status Discussion: Discussed Care Teams Laboratory Apparatus [employer] Relationship Specialty Start Date End Date Nimisha Peterson DO [address] [place] [address] PCP - General Family Practice 06/01/22 [place] [address] [place], [place] [id number] Rheumatology 05/14/25 Carla Matthews MBBS [address] [place] [address] Nephrology Nephrology 06/05/25 [place] [address] [place], [place] [phone] Endocrinology Endocrinology 07/03/25
[2025-07-10 09:18] VITALS: BP 107/59; PULSE 77; RESP 28; TEMP 36.4; O2SAT 96; BMI 33.7
[2025-07-10 09:29] VITALS: PULSE 72; RESP 20; O2SAT 95
--- NOTE | 2025-07-10 09:30 | ED.GENADULT ---
HPI - General Adult General Chief complaint: Unspecified Complaint, Adult Stated complaint: High K Time Seen by Provider: 07/10/25 09:20 History of Present Illness HPI narrative: Patient is a pleasant 74 year white female was told by the clinic to come here because her potassium was ?too high?. She had potassium drawn at the [facility] on Tuesday and presents today on the recommendation. She is asymptomatic. She has no history of chest pain breathing problem muscle weakness or tenderness. She does not take potassium. She does take lisinopril 30 mg daily in addition other medications that are reviewed. Patient has been a good state of health recently as mention no leg swelling edema bleeding or clotting problems no chest pain or breathing problem. Related Data Home Medications ?Medication ?Instructions ?Recorded ?Confirmed albuterol sulfate 90 mcg/actuation 2 puff inhalation Q4H PRN wheezing 02/26/25 02/26/25 aerosol inhaler cholecalciferol (vitamin D3) 1,250 1,250 mcg PO 02/26/25 mcg (50,000 unit) capsule clopidogrel 75 mg tablet 75 mg PO DAILY 02/26/25 02/26/25 famotidine 40 mg tablet 40 mg PO DAILY 02/26/25 02/26/25 lisinopril 30 mg tablet 30 mg PO DAILY 02/26/25 02/26/25 metoprolol tartrate 25 mg tablet 25 mg PO BID 02/26/25 02/26/25 rosuvastatin 40 mg tablet 40 mg PO DAILY 02/26/25 02/26/25 Previous Rx's ?Medication ?Instructions ?Recorded nitrofurantoin 100 mg PO BID #10 caps 02/26/25 monohydrate/macrocrystals 100 mg capsule (Macrobid) prednisone 20 mg tablet 80 mg (4 x 20 mg) PO DAILY 2 weeks 02/26/25 #60 tabs Allergies Allergy/AdvReac Type Severity Reaction Status Date / Time No Known Drug Allergies Allergy Verified 02/26/25 17:42 Review of Systems Status of ROS: Reports: 6 or more systems reviewed and unremarkable except as noted in History and below PFSH PFS Social History Smoking Status: Never smoker Do you use any of these nicotine containing products: None Second hand tobacco smoke exposure: No How often do you have a drink containing alcohol: never How often do you have six or more drinks on one occasion: Never AUDIT-C Alcohol total score: 0 Non-prescribed substance use: denies use service: No Exam Narrative: Exam Narrative: Objective vital signs are within normal limits Patient is pleasant alert oriented no distress noncyanotic Heart rhythm regular 2/6 systolic murmur occasional ectopic beat noted Extremities normal strength sensation she is moving well she is ambulatory. Const: Vital Signs, click to edit/add: Vital Signs - 24 hr 07/10/25 09:18 07/10/25 09:29 07/10/25 09:45 Temperature 97.5 F L Pulse Rate 72 72 Pulse Rate [Right Radial] 77 Respiratory Rate 28 H 20 23 Blood Pressure Blood Pressure [Ri ght Upper Arm] 107/59 L Pulse Oximetry 96 95 Oxygen Delivery Me thod Room Air 07/10/25 10:00 07/10/25 10:05 07/10/25 10:15 Temperature Pulse Rate 69 68 68 Pulse Rate [Right Radial] Respiratory Rate 20 18 27 H Blood Pressure 96/51 L Blood Pressure [Ri ght Upper Arm] Pulse Oximetry 96 93 93 Oxygen Delivery Me thod Course Vital Signs Vital signs: Initial Vital Signs Temperature 97.5 F L 07/10/25 09:18 Temperature Source Temporal Artery Scan 07/10/25 09:18 Pulse Rate 77 07/10/25 09:18 Pulse Rhythm Regular 07/10/25 09:18 Respiratory Rate 28 H 07/10/25 09:18 Blood Pressure 107/59 L 07/10/25 09:18 Blood Pressure Mean 75 07/10/25 09:18 Pulse Oximetry 96 07/10/25 09:18 Oxygen Delivery Method Room Air 07/10/25 09:18 Vital Signs Temperature 97.5 F L 07/10/25 09:18 Pulse Rate 77 07/10/25 09:18 Respiratory Rate 28 H 07/10/25 09:18 Blood Pressure 107/59 L 07/10/25 09:18 Pulse Oximetry 96 07/10/25 09:18 Oxygen Delivery Method Room Air 07/10/25 09:18 Temperature 97.5 F L 07/10/25 09:18 Pulse Rate 68 07/10/25 10:15 Respiratory Rate 27 H 07/10/25 10:15 Blood Pressure 96/51 L 07/10/25 10:05 Pulse Oximetry 93 07/10/25 10:15 Oxygen Delivery Method Room Air 07/10/25 09:18 Medical Decision Making MDM Narrative Medical decision making narrative: [age] white female on lisinopril and other medications, presents on recommendation of the clinic with an abnormal potassium. She stated that it might be 2.9, which would be low, but also was told a clinic that her potassium was too high. Will check her electrolytes, EKG, CBC. Disposition pending findings treatment as appropriate. Please see addendum Addendum 10:12 a.m. patient's EKG by my independent interpretation shows normal sinus rhythm occasional PVC no acute ST T wave changes no peaked T-waves. Her potassium is normal at 4.6, her hemoglobin is slightly low at 10. Her creatinine is little bit more elevated than it was but 6 months ago it was 1.3 now it is 2.2. At this point would have her hold her lisinopril and then recheck with her regular doctor next few days to get a repeat potassium and creatinine. She is asymptomatic at present. I think she is safe to go home at this point. She was comfortable plan will follow up as directed Lab Data Labs: Lab Results 07/10/25 Range/Units 09:40 WBC 9.11 (4.50-11.00) K/uL RBC 3.53 L (4.00-5.20) m/uL Hgb 10.9 L (12.0-16.0) gm/dL Hct 35.5 (33.0-51.0) % MCV 101 H (80-100) fL MCH 31 (26-34) pg MCHC 31 L (32-36) gm/dL RDW Coeff of Wili 12.9 (11.5-15.5) % Plt Count 279 (140-440) K/uL Neut % (Auto) 67.8 (42.0-72.0) % Lymph % (Auto) 22.5 (20-44) % Jerauld % (Auto) 5.6 (0.0-11.0) % Eos % (Auto) 1.6 (0.0-7.0) % Baso % (Auto) 0.5 (0.0-3.0) % Neut # (Auto) 6.17 (1.7-7.0) K/uL Lymph # (Auto) 2.05 (0.90-2.90) K/uL Jerauld # (Auto) 0.50 (0.00-0.90) K/UL Eos # (Auto) 0.15 (0.00-0.50) K/uL Baso # (Auto) 0.05 (0.00-0.30) K/uL Abs Immat Gran (auto) 0.18 (0.00-0.30) K/uL Imm/Tot Granulo (auto) 2.0 % Sodium 140 (135-149) mmol/L Potassium 4.6 (3.6-5.1) mmol/L Chloride 105 (96-114) mmol/L Carbon Dioxide 28 (20-32) mmol/L Anion Gap 7 (7-15) mEq/L BUN 65 H (7-30) mg/dL Creatinine 2.2 H (0.5-1.5) mg/dL Estimated Creat Clear 18.00 Estimated GFR 23 ml/min Glucose 176 H (60-115) mg/dL Calcium 9.4 (8.4-10.6) mg/dL Discharge Plan Discharge Clinical Impression: Potassium disorder, Chronic renal insufficiency Patient Disposition: Home w/ Parent or Adult Condition: Stable Additional Instructions: Would have he stop your lisinopril for now, recheck with your regular doctor next 2-3 days to get a repeat creatinine level which measure kidney function. Return sooner problems or concerns. Your potassium was normal today. Activity Level: No Restrictions Discharge Diet: Regular Prescriptions: No Action famotidine 40 mg tablet 40 mg PO DAILY clopidogrel 75 mg tablet 75 mg PO DAILY lisinopril 30 mg tablet 30 mg PO DAILY albuterol sulfate 90 mcg/actuation HFA aerosol inhaler 2 puff INHALATION Q4H PRN (Reason: wheezing) rosuvastatin 40 mg tablet 40 mg PO DAILY metoprolol tartrate 25 mg tablet 25 mg PO BID cholecalciferol (vitamin D3) 1,250 mcg (50,000 unit) capsule 1,250 mcg PO prednisone 20 mg tablet 80 mg PO DAILY 14 Days Qty: 60 0RF nitrofurantoin monohyd/m-cryst [Macrobid] 100 mg capsule 100 mg PO BID Qty: 10 0RF Rx Instructions: must administer with a meal/food Follow Up/Referrals: Nimisha Peterson DO [Primary Care Provider, Family Practice] Stand Alone [facility]: [facility]
[2025-07-10 09:45] VITALS: PULSE 72; RESP 23
[2025-07-10 09:58] LABS: Chloride* 105 mmol/L (96-114); Potassium* 4.6 mmol/L (3.6-5.1); Sodium* 140 mmol/L (135-149)
[2025-07-10 10:00] VITALS: PULSE 69; RESP 20; O2SAT 96
[2025-07-10 10:00] LABS: Hematocrit* 35.5 % (33.0-51.0); Hemoglobin* 10.9 gm/dL (12.0-16.0); Immature Granulocytes Abs Auto 0.18 K/uL (0.00-0.30); Immature Granulocytes Pct Auto 2.0 %; Lymphocytes Absolute Auto 2.05 K/uL (0.90-2.90); Mean Corpuscular HGB Conc 31 gm/dL (32-36); Mean Corpuscular Hemoglobin 31 pg (26-34); Mean Corpuscular Volume 101 fL (80-100); RDW Coefficient of Variation % 12.9 % (11.5-15.5); Red Blood Count* 3.53 m/uL (4.00-5.20); White Blood Count* 9.11 K/uL (4.50-11.00)
[2025-07-10 10:01] LABS: Anion Gap 7 mEq/L (7-15); Blood Urea Nitrogen* 65 mg/dL (7-30); Calcium* 9.4 mg/dL (8.4-10.6); Carbon Dioxide* 28 mmol/L (20-32); Creatinine* 2.2 mg/dL (0.5-1.5); Est. Creatinine Clearance* 18.00; Estimated Glomerular Filt Rate 23 ml/min; Glucose* 176 mg/dL (60-115)
[2025-07-10 10:05] VITALS: BP 96/51; PULSE 68; RESP 18; O2SAT 93
[2025-07-10 10:05] LABS: Slide Review Reflex No
[2025-07-10 10:15] VITALS: PULSE 68; RESP 27; O2SAT 93
== END 2025-07-10 10:29 | disposition home or self-care (01) ==
PROVIDERS: Emergency Provider Family Medicine; PCP Family Medicine
DX: E87.5 Hyperkalemia (principal); N18.9 Chronic kidney disease, unspecified
CPT/HCPCS: 36415; 80048; 85025; 93005; 99284